=== PATIENT | male | born 1950 | race Caucasian/White ===

== ENCOUNTER → 2016-12-22 | Outpatient (CLI) | payer MEDICARE, BC ==
[2016-01-22 00:30] VITALS: BP 114/48
[~2016-12-22] MED LIST: ALBU8.5H6 INH; ATOR20TA PO; CARV3.12 PO; CLOP75TA PO; HYDR-2678 PO; HYDR-971 PO; LISI2.5T PO; LISI40TA PO; ROFL500T PO; TAMS0.4C97 PO; TIOT18CA IH
--- NOTE | 2016-12-22 10:26 | CARD ---
APPROVED REPORT EXAM: Two-dimensional and M-mode echocardiogram with Doppler and color Doppler. Other Information Quality : GoodHR: 70bpm Rhythm : NSR INDICATION Cardiac Disease: CAD CVD Aortic stenosis Surgery/Intervention CABG: RISK FACTORS Hypertension 2D DIMENSIONS RVDd2.8 (2.9-3.5cm)Left Atrium(2D)3.3 (1.6-4.0cm) IVSd0.9 (0.7-1.1cm)Aortic Root(2D)3.0 (2.0-3.7cm) LVDd4.8 (3.9-5.9cm)LVOT Diameter2.2 (1.8-2.4cm) PWd1.0 (0.7-1.1cm)LVDs3.4 (2.5-4.0cm) FS (%) 28.9 %SV59.5 ml LVEF(%)55.4 (>50%) Aortic Valve AoV Peak Yogi.183.5cm/sAoV VTI37.8cm AO Peak GR.13.5mmHgLVOT Peak Yogi.112.4cm/s AO Mean GR.7mmHgAVA (VMAX)2.30cm2 Mitral Valve MV E Rthqtnwq61.0cm/sMV E Peak Gr.4mmHg MV DECEL [id number] A Alzukupg33.3cm/s MV E Mean Gr.2mmHgE/A Ratio0.9 MV A [id number] Pulmonary Valve PV Peak Geimpiva47.2cm/s Tricuspid Valve TR P. Amyubmgx959ti/sTR Peak Gr.23mmHg Pulmonary Vein S1 Osplnrzv42.6cm/sD2 Teyjwhvy95.2cm/s PVa wacxfpvl47uymm LEFT VENTRICLE The left ventricle is normal size. There is normal left ventricular wall thickness. The left ventricu lar systolic function is normal and the ejection fraction is within normal range. The Ejection Fracti on is 50-55%. Abnormal septal wall motion is noted, moderate hypokinesis. All other left ventricular vazquez appear to contract normally. Transmitral Doppler flow pattern is Grade I-abnormal relaxation pa ttern. RIGHT VENTRICLE The right ventricle is normal size. There is normal right ventricular wall thickness. The right ventr icular systolic function is normal. ATRIA The left atrium size is normal. The right atrium size is normal. The interatrial septum is intact wit h no evidence for an atrial septal defect or patent foramen ovale as noted on 2-D or Doppler imaging. AORTIC VALVE There is a bioprosthetic aortic valve prosthesis, not well visualized. Doppler and Color Flow reveale d no significant aortic regurgitation. There is no significant aortic valvular stenosis. There is no aortic valvular vegetation. MITRAL VALVE Mitral annular calcification is mild. The mitral valve leaflets are thickened. There is no evidence o f mitral valve prolapse. There is no mitral valve stenosis. Doppler and Color Flow revealed mild mitr al regurgitation. TRICUSPID VALVE Doppler and Color Flow revealed trace tricuspid regurgitation. The pulmonary artery systolic pressure is estimated at 28 mmHg. There is no pulmonary hypertension. PULMONIC VALVE The pulmonic valve is not well visualized. Doppler and Color Flow revealed no pulmonic valvular regur gitation. There is no pulmonic valvular stenosis. GREAT VESSELS The aortic root is normal in size. The ascending aorta is normal in size. The IVC is normal in size a nd collapses >50% with inspiration. PERICARDIAL EFFUSION There is no evidence of significant pericardial effusion. Critical Notification Critical Value: No <Conclusion> The left ventricular systolic function is normal and the ejection fraction is within normal range. Th e Ejection Fraction is 50-55%. Abnormal septal wall motion is noted, moderate hypokinesis. All other left ventricular vazquez appear t o contract normally. There is a bioprosthetic aortic valve prosthesis, not well visualized.
== END | disposition home or self-care (01) ==
LOC: ECHO 07:42
PROVIDERS: ATTEND Internal Medicine Cardiovascular Disease
DX: I35.0 Nonrheumatic aortic (valve) stenosis (principal); I25.10 Atherosclerotic heart disease of native coronary artery without angina pectoris
CPT/HCPCS: 93306

== ENCOUNTER → 2017-11-29 | Outpatient (CLI) | payer MEDICARE | END | disposition home or self-care (01) | LOC: ECHO 07:44 | DX: I35.0 Nonrheumatic aortic (valve) stenosis (principal); Z95.1 Presence of aortocoronary bypass graft | CPT/HCPCS: 93306 ==

== ENCOUNTER → 2018-01-09 | Outpatient (CLI) | payer MEDICARE | END | disposition home or self-care (01) | LOC: US 16:00 | DX: I73.9 Peripheral vascular disease, unspecified (principal) | CPT/HCPCS: 93925 ==

== ENCOUNTER → 2018-06-28 | Outpatient (CLI) | payer MEDICARE ==
[2016-01-22 00:30] VITALS: BP 114/48
[~2018-06-28] MED LIST changes: +LISI-130 PO; -LISI40TA PO; -ROFL500T PO; +ROFL500T7 PO
--- NOTE | 2018-06-28 10:31 | CARD ---
MR#: [id number] Date of Study: 06/28/2018 Ordering Physician: NITA HOLLIDAY, Referring Physician: NITA HOLLIDAY, Tech: Jocelyn Langley HÉCTOR APPROVED REPORT EXAM: Two-dimensional and M-mode echocardiogram with Doppler and color Doppler. Other Information Quality : Good INDICATION Aortic Valve Disease RISK FACTORS Smoking 2D DIMENSIONS RVDd2.9 (2.9-3.5cm)Left Atrium(2D)3.5 (1.6-4.0cm) IVSd1.0 (0.7-1.1cm)Aortic Root(2D)2.8 (2.0-3.7cm) LVDd4.8 (3.9-5.9cm)LVOT Diameter2.4 (1.8-2.4cm) PWd0.9 (0.7-1.1cm)LVDs3.6 (2.5-4.0cm) FS (%) 27.0 %SV51.3 ml LVEF(%)55.0 (>50%) Aortic Valve AoV Peak Yogi.177.5cm/sAoV VTI31.8cm AO Peak GR.12.6mmHgLVOT Peak Yogi.122.6cm/s AO Mean GR.6mmHgAVA (VMAX)3.13cm2 ENMANUEL (VTI)3.10cm2 Mitral Valve MV E Fltclxdx43.0cm/sMV DECEL [id number] MV A Goconrdz70.6cm/sE/A Ratio1.2 Tricuspid Valve TR P. Btfxrbiy446lu/sRAP LVHBDORW4ikKb TR Peak Gr.47ssIqQGWY40bzEd Pulmonary Vein S1 Muescpdw29.0cm/sD2 Zycsausb28.9cm/s LEFT VENTRICLE The left ventricle is normal size. There is normal left ventricular wall thickness. Left ventricle sy stolic function is normal. The Ejection Fraction is 55%. Septal motion consistent with post operative state. The left ventricular diastolic function and filling is normal for age. RIGHT VENTRICLE The right ventricle is normal size. The right ventricular systolic function is normal. ATRIA The left atrium size is normal. The right atrium size is normal. The interatrial septum is intact wit h no evidence for an atrial septal defect or patent foramen ovale as noted on 2-D or Doppler imaging. AORTIC VALVE The aortic valve is not well visualized. Doppler and Color Flow revealed no significant aortic regurg itation. There is no significant aortic valvular stenosis. MITRAL VALVE The mitral valve is calcified but opens well. There is no evidence of mitral valve prolapse. There is no mitral valve stenosis. Doppler and Color-flow revealed trace mitral regurgitation. TRICUSPID VALVE The tricuspid valve is normal in structure and function. Doppler and Color Flow revealed trace to mil d tricuspid regurgitation. There is mild pulmonary hypertension. The PA pressure was estimated at 34 mmHg. There is no tricuspid valve stenosis. PULMONIC VALVE The pulmonic valve is not well visualized. Doppler and Color Flow revealed trace to mild pulmonic zia vular regurgitation. There is no pulmonic valvular stenosis. GREAT VESSELS The aortic root is normal in size. The ascending aorta is not well seen. The IVC is dilated and colla pses >50% with inspiration. PERICARDIAL EFFUSION There is no evidence of significant pericardial effusion. Critical Notification Critical Value: No <Conclusion> Left ventricle systolic function is normal. The Ejection Fraction is 55%. Trace mitral regurgitation. Trace to mild tricuspid regurgitation. The PA pressure was estimated at 34 mmHg. There is no evidence of significant pericardial effusion. Signed by : Girish Berry, Electronically Approved : 06/28/2018 10:30:49
== END | disposition home or self-care (01) ==
LOC: ECHO 08:42
PROVIDERS: ATTEND Internal Medicine Cardiovascular Disease
DX: I08.8 Other rheumatic multiple valve diseases (principal); I27.20 Pulmonary hypertension, unspecified; E78.5 Hyperlipidemia, unspecified; I11.0 Hypertensive heart disease with heart failure; I50.31 Acute diastolic (congestive) heart failure; E78.00 Pure hypercholesterolemia, unspecified; E87.5 Hyperkalemia; I25.10 Atherosclerotic heart disease of native coronary artery without angina pectoris; Z87.891 Personal history of nicotine dependence; Z86.718 Personal history of other venous thrombosis and embolism; Z90.49 Acquired absence of other specified parts of digestive tract; Z88.2 Allergy status to sulfonamides; Z88.5 Allergy status to narcotic agent; Z88.6 Allergy status to analgesic agent; Z88.8 Allergy status to other drugs, medicaments and biological substances
CPT/HCPCS: 93306

== ENCOUNTER → 2018-07-25 | Outpatient (CLI) | payer MEDICARE ==
[2016-01-22 00:30] VITALS: BP 114/48
--- NOTE | 2018-07-25 15:05 | KCIC ---
CT chest without contrast, low-dose lung screening protocol 07/25/2018 CLINICAL INDICATION: Tobacco use, smoking history of 50 years. COMPARISON: CT chest 07/17/2016, 01/12/2016. TECHNIQUE: Multiple CT images of the chest were obtained without contrast utilizing the low-dose CT technique. *One or more of the following individualized dose reduction techniques were utilized for this examination: 1. Automated exposure control. 2. Adjustment of the mA and/or kV according to patient size. 3. Use of iterative reconstruction technique. FINDINGS: Heart size is normal without significant pericardial effusion. Prior median sternotomy and aortic valvular repair. Three-vessel coronary artery calcifications. No axillary, mediastinal or obvious hilar lymphadenopathy. There are scattered mediastinal and bilateral hilar calcified granulomas. Moderate centrilobular and paraseptal emphysema. There is mild central peribronchial thickening. There are scattered calcified granulomas throughout both lungs. No suspicious noncalcified pulmonary nodules. There is stable minimal elevation of the left hemidiaphragm with peripheral left basilar scarring. Stable mild superior endplate L1 compression deformity. IMPRESSION: 1. No suspicious noncalcified pulmonary nodules. Lung RADS category 1. Continued low-dose CT chest follow-up in 12 months. 2. Moderate emphysema. 3. Three-vessel coronary artery calcifications. Electronically signed by: Pk Be MD (07/25/2018 3:01 PM) [id number]
== END | disposition home or self-care (01) ==
LOC: KCIC CT 10:22
PROVIDERS: ATTEND Nurse Practitioner Family
DX: Z12.2 Encounter for screening for malignant neoplasm of respiratory organs (principal); C34.92 Malignant neoplasm of unspecified part of left bronchus or lung; J43.8 Other emphysema; I25.10 Atherosclerotic heart disease of native coronary artery without angina pectoris; Z72.0 Tobacco use; L92.8 Other granulomatous disorders of the skin and subcutaneous tissue; Z87.891 Personal history of nicotine dependence
CPT/HCPCS: G0297

== ENCOUNTER → 2019-03-14 | Outpatient (CLI) | payer MEDICARE ==
[2016-01-22 00:30] VITALS: BP 114/48
[~2019-03-14] MED LIST changes: +FURO40TA4 PO; +HYDR-3164 PO; -HYDR-971 PO
--- NOTE | 2019-03-14 14:06 | KCIC ---
Examination: CT LOW DOSE LUNG SCREENING History: 25 pack-year smoking history. Comparison/Correlation: 07/25/2018 low-dose lung cancer. CT exam Findings: Axial images of chest were obtained without contrast. Sagittal and coronal reformatted images provided. Exam performed according to low-dose lung cancer screening CT protocol. Sternal wires are present. Prosthetic aortic valve is present. There is no pleural or pericardial effusion. No enlarged thoracic lymph nodes. Calcified subcarinal lymph nodes are present. Tracheobronchial tree is unremarkable. Diffuse centrilobular emphysema lung gomez noted. No pulmonary nodule or mass lesion. Calcific granuloma involves the right lung base. Partially visualized upper abdomen is unremarkable. L1 vertebral body compression deformity is unchanged. Impression: Lungs rads category 1-negative. No suspicious pulmonary nodule. Consider continued annual screening evaluation. Diffuse centrilobular emphysema. PQRS Compliance Statement: One or more of the following individualized dose reduction techniques were utilized for this examination: 1. Automated exposure control 2. Adjustment of the mA and/or kV according to patient size 3. Use of iterative reconstruction technique Electronically signed by: Usman Banks MD (03/14/2019 2:03 PM) [id number]
== END | disposition home or self-care (01) ==
LOC: KCIC CT 08:03
PROVIDERS: ATTEND Internal Medicine Pulmonary Disease
DX: Z12.2 Encounter for screening for malignant neoplasm of respiratory organs (principal); J43.2 Centrilobular emphysema; J84.10 Pulmonary fibrosis, unspecified; I89.8 Other specified noninfective disorders of lymphatic vessels and lymph nodes; F17.210 Nicotine dependence, cigarettes, uncomplicated; Z95.2 Presence of prosthetic heart valve
CPT/HCPCS: G0297

== ENCOUNTER 2019-03-27 12:36 | Inpatient (IN) | payer MEDICARE ==
[~2019-03-27] VITALS: Ht 188 cm; Wt 77.1 kg
[2019-03-27] MEDS: ALBUTEROL SULFATE 2.5 MG/3 ML NEBU. NEB SCH ×2 (04:00)
[~2019-03-27 12:36] MED LIST changes: -FURO40TA4 PO
[2019-03-27 14:01] LABS: BASO # 0.1 x10^3/uL (0.0-0.2); BASO % 1 % (0-3); EOS % 1 % (0-3); HEMATOCRIT 45.8 % (39.0-53.0); HEMOGLOBIN 15.3 g/dL (13.0-17.5); LYMPH # 1.6 x10^3/uL (1.0-4.8); LYMPH % 24 % (24-48); MEAN CORPUSCULAR HEMOGLOBIN 31 pg (25-35); MEAN CORPUSCULAR HGB CONC 34 g/dL (31-37); MEAN CORPUSCULAR VOLUME 93 fL (79-100); MONO # 0.4 x10^3/uL (0.0-1.1); MONO % 6 % (0-9); NEUT # 4.7 x10^3uL (1.8-7.7); NEUT % 69 % (31-73); PLATELET COUNT 215 x10^3/uL (140-400); RED BLOOD COUNT 4.93 x10^6/uL (4.30-5.70); RED CELL DISTRIBUTION WIDTH 13.4 % (11.5-14.5); WHITE BLOOD COUNT 6.8 x10^3/uL (4.0-11.0)
[2019-03-27 14:11] LABS: CALCIUM 9.3 mg/dL (8.5-10.1); CREATININE 1.2 mg/dL (0.7-1.3); GFR 60.4; POTASSIUM 3.9 mmol/L (3.5-5.1); PROTHROMBIN TIME PATIENT 13.8 SEC (11.7-14.0)
[2019-03-27 14:16] LABS: ALBUMIN 3.9 g/dL (3.4-5.0); TOTAL BILIRUBIN 0.6 mg/dL (0.2-1.0)
--- NOTE | 2019-03-27 14:27 | PDOC1 ---
History and Physical Date of Admission Date of Admission DATE: 03/27/19 TIME: 14:23 Identification/Chief Complaint Chief Complaint claudication Source Source: Caregiver, Chart review, Patient History of Present Illness History of Present Illness 78-year-old white male, bad vasculopath, distant CABG and very heavy smoker down to half a pack a day from previous 2-3 packs a day, known to our vascular surgery service for numerous revascularization of bilateral legs. Sent in by PCP office Dr. Bianchi because of claudication and decreased pulses. Seen at ER with the , agreeable to be admitted. AMADA and arterial Dopplers are being done at bedside. He does have claudication some numbness otherwise denies any chest pain diaphoresis presyncopal symptoms or anything else. He takes Plavix and aspirin and claims compliance Past Medical History Cardiovascular: CAD, HTN, Other Pulmonary: COPD CENTRAL NERVOUS SYSTEM: Other GI: Peptic Ulcer disease Heme/Onc: Other Hepatobiliary: No pertinent hx Psych: No pertinent hx Musculoskeletal: Osteoarthritis, Other Infectious disease: No pertinent hx Renal/: Benign prostatic enlarg. Endocrine: No pertinent hx Past Surgical History Past Surgical History: Appendectomy, Other (numerous revasc proc leg bilateral) Family History Family History: No Significant, Hypertension Social History Smoke: <1 pack per day ALCOHOL: occassional Drugs: None Current Medications Current Medications Current Medications Albuterol Sulfate (Ventolin Hfa) 2 puff Q4HRS INH ; Start 03/27/19 at 16:00; Status UNV Atorvastatin Calcium (Lipitor) 20 mg DAILY PO ; Start 03/28/19 at 09:00; Status UNV Carvedilol (Coreg) 3.125 mg BID PO ; Start 03/27/19 at 21:00; Status UNV Clopidogrel Bisulfate (Plavix) 75 mg DAILY PO ; Start 03/28/19 at 09:00; Status UNV Acetaminophen/ Hydrocodone Bitart (Lortab 5/325) 2 tab PRN Q6HRS PRN PO PAIN; Start 03/27/19 at 14:30; Status UNV Acetaminophen/ Hydrocodone Bitart (Lortab 5/325) 1 tab QID PRN PO pain; Start 03/27/19 at 14:30; Status UNV Tamsulosin HCl (Flomax) 0.4 mg DAILY PO ; Start 03/28/19 at 09:00; Status UNV Non-Formulary Medication (Roflumilast (Daliresp)) 1 tab DAILY PO ; Start 03/28/19 at 09:00; Status UNV Non-Formulary Medication (Tiotropium Bangs (Spiriva)) 2 inh DAILY IH ; Start 03/28/19 at 09:00; Status UNV Active Scripts Active Coreg (Carvedilol) 3.125 Mg Tablet 1 Tab PO BID Lipitor (Atorvastatin Calcium) 20 Mg Tablet 1 Tab PO DAILY [place] 5-325 Tablet (Acetaminophen/Hydrocodone Bitart) 1 Each Tablet 1-2 Tab PO Q4-6HRS 14 Days Reported Lortab 5-325 mg Tablet (Hydrocodone/Acetaminophen) 1 Each Tablet 2 Tab PO PRN Q6HRS PRN Flomax (Tamsulosin Hcl) 0.4 Mg Cap.er.24h 0.4 Mg PO DAILY Albuterol Sulfate Hfa Inhaler (Albuterol Sulfate) 8.5 Gm Hfa.aer.ad 2 Puff INH Q4HRS Clopidogrel (Clopidogrel Bisulfate) 75 Mg Tablet 1 Tab PO DAILY Daliresp (Roflumilast) 500 Mcg Tablet 1 Tab PO DAILY Spiriva (Tiotropium Bangs) 18 Mcg Cap.w.dev 2 Inh IH DAILY Allergies Allergies: Coded Allergies: Sulfa (Sulfonamide Antibiotics) (Verified Adverse Reaction, Intermediate, HALLUCINATIONS, 01/13/16) had horrible hallucinations and was in the hospital for 1 week bupropion (Verified Adverse Reaction, Intermediate, HALLUCINATIONS, 01/13/16) morphine (Verified Adverse Reaction, Intermediate, HALLUCINATIONS, 01/13/16) if taking for more than 24hrs starts hallucinating, paranoid varenicline (Verified Adverse Reaction, Intermediate, HALLUCINATIONS, 01/13/16) took an old drug that is in the same class called Ziban (?sp) and had terrible hallucinations and states he was crazy for a week and off work for another 3 weeks after out of the hospital ROS Review of System As per history of present illness, the rest of ROS 14 point negative Physical Exam General: Alert, Oriented X3, Cooperative, No acute distress HEENT: Atraumatic, PERRLA, EOMI Lungs: Clear to auscultation, Normal air movement Heart: S1S2, RRR, no thrills, no rubs, no gallops, no murmurs Cardiovascular: S1, S2 Abdomen: Normal bowel sounds, Soft, No tenderness, No hepatosplenomegaly, No masses Male Genitals Exam: normal genitalia, normal prostate Rectal Exam: not examined PELVIC: Nml ext genitalia Extremities: No clubbing, No cyanosis, No edema, No tenderness/swelling, Other (decreased pulses dorsalis pedis left greater than right) Neuro: Normal gait, Normal speech, Strength at 5/5 X4 ext, Normal tone, Sensation intact, Cranial nerves 3-12 NL, Reflexes 2+ Psych/Mental Status: Mental status NL, Mood NL Vitals Vitals Vital Signs Date Time Temp Pulse Resp B/P (MAP) Pulse Ox O2 Delivery O2 Flow Rate FiO2 03/27/19 13:13 97.7 56 24 150/67 (94) 97 Room Air 97.7 Labs Labs Laboratory Tests Test 03/27/19 13:50 White Blood Count 6.8 x10^3/uL (4.0-11.0) Red Blood Count 4.93 x10^6/uL (4.30-5.70) Hemoglobin 15.3 g/dL (13.0-17.5) Hematocrit 45.8 % (39.0-53.0) Mean Corpuscular Volume 93 fL (79-100) Mean Corpuscular Hemoglobin 31 pg (25-35) Mean Corpuscular Hemoglobin Concent 34 g/dL (31-37) Red Cell Distribution Width 13.4 % (11.5-14.5) Platelet Count 215 x10^3/uL (140-400) Neutrophils (%) (Auto) 69 % (31-73) Lymphocytes (%) (Auto) 24 % (24-48) Monocytes (%) (Auto) 6 % (0-9) Eosinophils (%) (Auto) 1 % (0-3) Basophils (%) (Auto) 1 % (0-3) Neutrophils # (Auto) 4.7 x10^3uL (1.8-7.7) Lymphocytes # (Auto) 1.6 x10^3/uL (1.0-4.8) Monocytes # (Auto) 0.4 x10^3/uL (0.0-1.1) Eosinophils # (Auto) 0.0 x10^3/uL (0.0-0.7) Basophils # (Auto) 0.1 x10^3/uL (0.0-0.2) Prothrombin Time 13.8 SEC (11.7-14.0) Prothromb Time International Ratio 1.1 (0.8-1.1) Activated Partial Thromboplast Time 30 SEC (24-38) Sodium Level 143 mmol/L (136-145) Potassium Level 3.9 mmol/L (3.5-5.1) Chloride Level 102 mmol/L (98-107) Carbon Dioxide Level 31 mmol/L (21-32) Anion Gap 10 (6-14) Blood Urea Nitrogen 15 mg/dL (8-26) Creatinine 1.2 mg/dL (0.7-1.3) Estimated GFR (Cockcroft-Gault) 60.4 BUN/Creatinine Ratio 13 (6-20) Glucose Level 98 mg/dL (70-99) Calcium Level 9.3 mg/dL (8.5-10.1) Total Bilirubin 0.6 mg/dL (0.2-1.0) Aspartate Amino Transf (AST/SGOT) 14 U/L (15-37) Alanine Aminotransferase (ALT/SGPT) 15 U/L (16-63) Alkaline Phosphatase 122 U/L (46-116) Total Protein 8.0 g/dL (6.4-8.2) Albumin 3.9 g/dL (3.4-5.0) Albumin/Globulin Ratio 1.0 (1.0-1.7) Laboratory Tests Test 03/27/19 13:50 White Blood Count 6.8 x10^3/uL (4.0-11.0) Red Blood Count 4.93 x10^6/uL (4.30-5.70) Hemoglobin 15.3 g/dL (13.0-17.5) Hematocrit 45.8 % (39.0-53.0) Mean Corpuscular Volume 93 fL (79-100) Mean Corpuscular Hemoglobin 31 pg (25-35) Mean Corpuscular Hemoglobin Concent 34 g/dL (31-37) Red Cell Distribution Width 13.4 % (11.5-14.5) Platelet Count 215 x10^3/uL (140-400) Neutrophils (%) (Auto) 69 % (31-73) Lymphocytes (%) (Auto) 24 % (24-48) Monocytes (%) (Auto) 6 % (0-9) Eosinophils (%) (Auto) 1 % (0-3) Basophils (%) (Auto) 1 % (0-3) Neutrophils # (Auto) 4.7 x10^3uL (1.8-7.7) Lymphocytes # (Auto) 1.6 x10^3/uL (1.0-4.8) Monocytes # (Auto) 0.4 x10^3/uL (0.0-1.1) Eosinophils # (Auto) 0.0 x10^3/uL (0.0-0.7) Basophils # (Auto) 0.1 x10^3/uL (0.0-0.2) Prothrombin Time 13.8 SEC (11.7-14.0) Prothromb Time International Ratio 1.1 (0.8-1.1) Activated Partial Thromboplast Time 30 SEC (24-38) Sodium Level 143 mmol/L (136-145) Potassium Level 3.9 mmol/L (3.5-5.1) Chloride Level 102 mmol/L (98-107) Carbon Dioxide Level 31 mmol/L (21-32) Anion Gap 10 (6-14) Blood Urea Nitrogen 15 mg/dL (8-26) Creatinine 1.2 mg/dL (0.7-1.3) Estimated GFR (Cockcroft-Gault) 60.4 BUN/Creatinine Ratio 13 (6-20) Glucose Level 98 mg/dL (70-99) Calcium Level 9.3 mg/dL (8.5-10.1) Total Bilirubin 0.6 mg/dL (0.2-1.0) Aspartate Amino Transf (AST/SGOT) 14 U/L (15-37) Alanine Aminotransferase (ALT/SGPT) 15 U/L (16-63) Alkaline Phosphatase 122 U/L (46-116) Total Protein 8.0 g/dL (6.4-8.2) Albumin 3.9 g/dL (3.4-5.0) Albumin/Globulin Ratio 1.0 (1.0-1.7) VTE Prophylaxis Ordered VTE Prophylaxis Devices: Yes VTE Pharmacological Prophylaxi: Yes Assessment/Plan Assessment/Plan PAD, bilateral, numerous revascularization, bilateral legs-last one 10 years ago Heavy smoker Claudication History CAD with 1 stent Hx fem fem and fem-pop NO DM PLAN: admit 2 midnights, AMADA, arterial Dopplers, consult vascular surgery Cardiac diet until vascular surgery sees PT OT resume Plavix, aspirin and other meds Full code Nicotine patch and gum when necessary Smoking cessation emphasized by me at ER level Discussed with patient and , seen at ER LORNE ARANGO MD March 27, 2019 14:27
[2019-03-27] MEDS ORDERED: ACETAMINOPHEN/CODEINE 300/30MG TABLET. PO PRN (14:30)
[2019-03-27] MEDS ORDERED: diphenhydrAMINE HCL 25 MG CAPSULE PO PRN (14:30)
[2019-03-27] MEDS ORDERED: fentaNYL PF VIAL 100 MCG/2 ML VIAL IV PRN (14:30)
[2019-03-27] MEDS ORDERED: NICOTINE POLACRILEX 2MG GUM PACKAGE of 12. BC PRN (14:30)
[2019-03-27] MEDS ORDERED: ONDANSETRON PF 4 MG/2 ML VIAL. IV PRN (14:30)
[2019-03-27] MEDS ORDERED: ACETAMINOPHEN 500 MG TABLET PO PRN (14:30)
[2019-03-27] MEDS ORDERED: HYDROcodone/APAP 5/325MG 1 TAB TABLET PO PRN ×2 (14:30)
[2019-03-27] MEDS ORDERED: NICOTINE 21MG PATCH. TD PRN (14:30)
--- NOTE | 2019-03-27 14:37 | RAD ---
LEFT LEG VENOUS DOPPLER STUDY: Clinical indications: Left leg swelling and pain. Findings: Duplex sonography (including angel scale evaluation and color flow and waveform spectral analysis) of the proximal aspect of the greater saphenous vein and the proximal aspect of the profunda femoral vein and the entire length of the common femoral and superficial femoral and popliteal veins and the tibioperoneal trunk and the proximal aspect of the posterior tibial and peroneal veins of the left leg was performed. Normal compressibility, augmentation of color Doppler flow after calf compression, and respiratory variation of Doppler flow is seen. Thus, there are no sonographic findings of deep venous thrombosis within these veins. Impression: There are no sonographic findings of deep venous thrombosis within the veins discussed above of the left lower extremity. Electronically signed by: Galen Wells MD (03/27/2019 2:35 PM) [id number]
--- NOTE | 2019-03-27 15:44 | EKG ---
[facility] [address] [place] [address] Test Date: 2019-03-27 Test Time: 12:47:23 Pat Name: CRICKET PATTERSON Department: Room: Gender: M Back Maker: : [id number] Requested By: ERICA NORTON Order Number: [id number] Reading MD: Measurements Intervals [place] Rate: 53 P: 64 AR: 176 QRS: 81 QRSD: 92 T: 70 QT: 418 QTc: 394 Interpretive Statements SINUS RHYTHM S1,S2,S3 PATTERN QRS(T) CONTOUR ABNORMALITY CANNOT RULE OUT ANTEROSEPTAL MYOCARDIAL DAMAGE BORDERLINE ECG No previous ECG available for comparison
--- NOTE | 2019-03-27 15:46 | PHYS DOC ---
Past Medical History Past Medical History: CAD, COPD, High Cholesterol, Hypertension, Other Additional Past Medical Histor: arterial sclerosis, NSTEMI Past Surgical History: Appendectomy, Other Additional Past Surgical Histo: multiple bilat leg, fem pop, Anerysm reduction Alcohol Use: None Drug Use: None Adult General Chief Complaint Chief Complaint: LOWER EXT PAIN HPI HPI 68-year-old male presents to ER via POV for complaints of 5 day history of left leg pain. Patient's primary care physician's office called the ER to notify us of patient being sent to the ER for evaluation per request from his vascular surgeon. Patient has history of left lower extremity pseudoaneurysm repair a few years ago. Pt also has history of PAD/PVD. Patient denies any recent injury or falls. Patient denies swelling or skin discoloration and left lower extremity. Patient is a daily smoker. Patient denies any recent travel. Patient is on daily Plavix and aspirin for prior ME, stent placement, valve replacement, and CABG 2 vessel. Review of Systems Review of Systems Constitutional: Denies fever or chills [] Eyes: Denies change in visual acuity, redness, or eye pain [] HENT: Denies nasal congestion or sore throat [] Respiratory: Denies cough or shortness of breath [] Cardiovascular: Denies CP/palpitations GI: Denies abdominal pain, nausea, vomiting, bloody stools or diarrhea [] : Denies dysuria or hematuria [] Musculoskeletal: Reports lt leg pain Integument: Denies rash, swelling or skin lesions [] Neurologic: Denies headache, focal weakness or sensory changes [] Endocrine: Denies polyuria or polydipsia [] All other systems were reviewed and found to be within normal limits, except as documented in this note. Current Medications Current Medications Current Medications Medications (Trade) Dose Ordered Sig/Kacie Start Time Stop Time Status Last Admin Dose Admin Acetaminophen (Tylenol) 500 mg PRN Q6HRS PRN 03/27/19 14:30 03/28/19 21:30 DC Acetaminophen/ Codeine Phosphate (Tylenol #3) 1 tab PRN Q6HRS PRN 03/27/19 14:30 03/28/19 21:30 DC Acetaminophen/ Hydrocodone Bitart (Lortab 5/325) 1 tab PRN Q6HRS PRN 03/27/19 14:30 03/28/19 21:30 DC Albuterol Sulfate (Ventolin Neb Soln) 2.5 mg Q4HRS@0000,0400 03/27/19 00:00 03/28/19 21:30 DC Diphenhydramine HCl (Benadryl) 25 mg PRN QHS PRN 03/27/19 14:30 03/28/19 21:30 DC Fentanyl Citrate (Fentanyl 2ml Vial) 50 mcg PRN Q2HR PRN 03/27/19 14:30 03/28/19 21:30 DC Nicotine (Nicoderm Cq 21mg) 1 patch PRN DAILY PRN 03/27/19 14:30 03/28/19 21:30 DC Nicotine Polacrilex (Nicorette Gum) 1 each PRN Q1HR PRN 03/27/19 14:30 03/28/19 21:30 DC Ondansetron HCl (Zofran) 4 mg PRN Q6HRS PRN 03/27/19 14:30 03/28/19 21:30 DC Allergies Allergies Allergies Coded Allergies Type Severity Reaction Last Updated Verified Sulfa (Sulfonamide Antibiotics) Adverse Reaction Intermediate HALLUCINATIONS 01/13/16 Yes bupropion Adverse Reaction Intermediate HALLUCINATIONS 01/13/16 Yes morphine Adverse Reaction Intermediate HALLUCINATIONS 01/13/16 Yes varenicline Adverse Reaction Intermediate HALLUCINATIONS 01/13/16 Yes Physical Exam Physical Exam Constitutional: Well developed, well nourished, no acute distress, non-toxic appearance. [] HENT: Normocephalic, atraumatic, oropharynx moist, no oral exudates, nose normal. [] Eyes: Pupils equal, conjunctiva normal, no discharge. [] Neck: Normal range of motion, no tenderness, supple, no stridor. [] Cardiovascular: Heart rate regular rhythm, no murmur [] Lungs & Thorax: Bilateral breath sounds clear to auscultation- resp. equal/nonlabored Abdomen: Bowel sounds normal, soft, no tenderness, no masses, no pulsatile masses. [] Skin: Warm, dry, no erythema, no rash. [] Back: No tenderness, no CVA tenderness. [] Extremities: No tenderness on palp, no cyanosis, no clubbing, ROM intact, no edema. [] Lt lower extremity bedside Doppler able to auscultate posterior tibial. Unable to auscultate dorsalis pedis. Femoral pulse 1+ weak lt side. Pulses 2+ rt femoral/dorsalis pedis/posterior tibial Neurologic: Alert and oriented X 3, normal motor function, normal sensory function, no focal deficits noted. [] Psychologic: Affect normal, judgement normal, mood normal. [] Current Patient Data Vital Signs Vital Signs Date Time Temp Pulse Resp B/P (MAP) Pulse Ox O2 Delivery O2 Flow Rate FiO2 03/27/19 14:51 56 127/62 (83) 95 Nasal Cannula 2.0 03/27/19 13:13 97.7 24 97.7 Lab Values Laboratory Tests Test 03/27/19 13:50 White Blood Count 6.8 x10^3/uL (4.0-11.0) Red Blood Count 4.93 x10^6/uL (4.30-5.70) Hemoglobin 15.3 g/dL (13.0-17.5) Hematocrit 45.8 % (39.0-53.0) Mean Corpuscular Volume 93 fL (79-100) Mean Corpuscular Hemoglobin 31 pg (25-35) Mean Corpuscular Hemoglobin Concent 34 g/dL (31-37) Red Cell Distribution Width 13.4 % (11.5-14.5) Platelet Count 215 x10^3/uL (140-400) Neutrophils (%) (Auto) 69 % (31-73) Lymphocytes (%) (Auto) 24 % (24-48) Monocytes (%) (Auto) 6 % (0-9) Eosinophils (%) (Auto) 1 % (0-3) Basophils (%) (Auto) 1 % (0-3) Neutrophils # (Auto) 4.7 x10^3uL (1.8-7.7) Lymphocytes # (Auto) 1.6 x10^3/uL (1.0-4.8) Monocytes # (Auto) 0.4 x10^3/uL (0.0-1.1) Eosinophils # (Auto) 0.0 x10^3/uL (0.0-0.7) Basophils # (Auto) 0.1 x10^3/uL (0.0-0.2) Prothrombin Time 13.8 SEC (11.7-14.0) Prothrombin Time INR 1.1 (0.8-1.1) PTT 30 SEC (24-38) Sodium Level 143 mmol/L (136-145) Potassium Level 3.9 mmol/L (3.5-5.1) Chloride Level 102 mmol/L (98-107) Carbon Dioxide Level 31 mmol/L (21-32) Anion Gap 10 (6-14) Blood Urea Nitrogen 15 mg/dL (8-26) Creatinine 1.2 mg/dL (0.7-1.3) Estimated GFR (Cockcroft-Gault) 60.4 BUN/Creatinine Ratio 13 (6-20) Glucose Level 98 mg/dL (70-99) Calcium Level 9.3 mg/dL (8.5-10.1) Total Bilirubin 0.6 mg/dL (0.2-1.0) Aspartate Amino Transferase (AST) 14 U/L (15-37) L Alanine Aminotransferase (ALT) 15 U/L (16-63) L Alkaline Phosphatase 122 U/L (46-116) H Total Protein 8.0 g/dL (6.4-8.2) Albumin 3.9 g/dL (3.4-5.0) Albumin/Globulin Ratio 1.0 (1.0-1.7) Laboratory Tests 03/27/19 13:50 Laboratory Tests 03/27/19 13:50 EKG EKG EKG obtained 03/27/19 at [address] Morrison Sinus bradycardia Rate 53 Radiology/Procedures Radiology/Procedures PROCEDURE: VENOUS LOWER EXTREMITY LEFT LEFT LEG VENOUS DOPPLER STUDY: Clinical indications: Left leg swelling and pain. Findings: Duplex sonography (including angel scale evaluation and color flow and waveform spectral analysis) of the proximal aspect of the greater saphenous vein and the proximal aspect of the profunda femoral vein and the entire length of the common femoral and superficial femoral and popliteal veins and the tibioperoneal trunk and the proximal aspect of the posterior tibial and peroneal veins of the left leg was performed. Normal compressibility, augmentation of color Doppler flow after calf compression, and respiratory variation of Doppler flow is seen. Thus, there are no sonographic findings of deep venous thrombosis within these veins. Impression: There are no sonographic findings of deep venous thrombosis within the veins discussed above of the left lower extremity. Electronically signed by: Richard Wells MD (03/27/2019 2:35 PM) [place] [id number] DICTATED and SIGNED BY: RICHARD WELLS MD DATE: 03/27/19 143 PROCEDURE: ARTERIAL STUDY LOWER EXT LEFT ANKLE BRACHIAL INDEX Indication: Left leg pain. History of pseudoaneurysm repair. Comparison: None. Procedure: Arterial pressures are measured in the arms and ankles. Findings: . Right ankle: 128 mm Hg. Right arm: 121 mm Hg. Left ankle: 137 mm Hg. Left arm: Not measured due to IV placement. Right leg AMADA: 1.1. Left leg AMADA: 1.2. AMADA interpretation: 0.96 and above Generally normal 0.81-0.95 Mild disease 0.51-0.80 Moderate disease 0.31-0.50 Moderate to severe disease 0.3 or below Severe disease IMPRESSION: Normal ABIs. End of impression: LOWER EXTREMITY DUPLEX ARTERY ULTRASOUND Indication: Left leg pain. History of pseudoaneurysm repair. Comparison: None. Procedure: Real-time grayscale, color flow Doppler, and Doppler spectral waveform analysis of the arterial system of the lower extremity is performed. Findings: Left common femoral artery waveform is monophasic, there is elevated peak systolic velocity 212 cm/s. There is monophasic waveform in the profunda artery. The [place] superficial femoral artery is occluded. There is a femoral popliteal bypass graft that is patent, calcified plaque is noted in the lumen. There are biphasic waveforms in the bypass without elevated peak systolic velocities. The popliteal artery, posterior tibial artery, and peroneal artery waveforms are biphasic. The anterior tibial artery waveform is monophasic. The dorsalis pedis artery is not identified and may be occluded or small caliber. IMPRESSION: 1. Left common femoral artery waveform is monophasic suggesting there is more proximal flow-limiting stenosis. 2. [place] SFA is occluded. There is a patent femoral-popliteal bypass. 3. Dorsalis pedis artery is not identified and may be occluded or small caliber. 4. Monophasic waveform in the anterior tibial artery suggests flow-limiting stenosis near its origin. Electronically signed by: Casper Franklin MD (03/27/2019 2:40 PM) [id number] DICTATED and SIGNED BY: CASPER FRANKLIN MD DATE: 03/27/19 1445 Course & Med Decision Making Course & Med Decision Making Pertinent Labs and Imaging studies reviewed. (See chart for details) 1406: Dr. Bradford, hospitalist was in ER and so discussed pt's case and admit plan. US results pending. Pt will be admitted to hospitalist services with consult for vascular surgery. 1456: Spoke with Dr. Garcia, [facility] and discussed pt's case and US results. No DVT on US report. "[place] SFA is occluded. There is a patent femoral-popliteal bypass" and "Dorsalis pedis artery is not identified and may be occluded or small caliber" also reported. Discussed test results with patient and his . Discussed admission plan. Patient has had no change in condition lt LE since initial exam. Patient was off ered pain medication and he reported pain to be tolerable. [facility] and care. Dragon Disclaimer Dragon Disclaimer This electronic medical record was generated, in whole or in part, using a voice recognition dictation system. Departure Departure Impression: Primary Impression: Left leg pain Disposition: ADMITTED INPATIENT Admitting Physician: Rossy Bradford Condition: STABLE Referrals: JOSIAS ST MD (PCP) ERICA NORTON ORE SMELTER March 27, 2019 15:46
[2019-03-27] MEDS: IPRATRPIUM/ALBUTEROL 0.5/2.5MG 3 ML NEBU. NEB SCH ×2 (16:00→19:36)
[2019-03-27 16:45] VITALS: BP 124/63
[2019-03-27] MEDS: CARVEDILOL 3.125 MG TABLET. PO SCH (18:30)
[2019-03-27] MEDS ORDERED: FURO40TA4 PO (18:34)
[2019-03-27 19:45] VITALS: BP 112/59
[2019-03-27] MEDS ORDERED: ATORVASTATIN CALCIUM 20 MG TABLET PO SCH (21:00)
--- NOTE | 2019-03-27 21:56 | PDOC ---
Provider Note Provider Note Vascular consult dictated Imp: 1. left buttock and hip claudication. Exam and ultrasound findings suggest inflow problem, ? left iliac stenosis 2. status post left fem-pop bypass. Patent with palpable graft and PT pulses 3. ASHD 4. tobaccoism 5. dyslipidemia Rec: CTA of the abdomen and pelvis with runoff. tobaccos cessation counseling KRISTA TEE II, MD March 27, 2019 21:56
[2019-03-27 23:51] VITALS: BP 104/55
[2019-03-28 03:54] VITALS: BP 106/56
[2019-03-28] MEDS: ALBUTEROL SULFATE 2.5 MG/3 ML NEBU. NEB SCH ×2 (04:00)
[2019-03-28 07:00] VITALS: BP 104/51
[2019-03-28] MEDS ORDERED: IOHEXOL 350 MG/ML 100 ML VIAL. IV ONE (07:15)
[2019-03-28] MEDS ORDERED: CONTRAST GIVEN. MC PRN (07:30)
[2019-03-28] MEDS: CARVEDILOL 3.125 MG TABLET. PO SCH (08:00)
[2019-03-28] MEDS: IPRATRPIUM/ALBUTEROL 0.5/2.5MG 3 ML NEBU. NEB SCH ×4 (08:18→20:00)
[2019-03-28] MEDS ORDERED: CLOPIDOGREL BISULFATE 75 MG TABLET PO SCH (09:00)
[2019-03-28] MEDS ORDERED: ROFLUMILAST 500 MCG TABLET. PO SCH (09:00)
[2019-03-28] MEDS ORDERED: NON FORMULARY ITEM (Tiotropium Bromide (Spiriva) 2 INH) IH SCH (09:00)
[2019-03-28] MEDS ORDERED: TAMSULOSIN 0.4 MG CAP.ER.24H. PO SCH (09:00)
--- NOTE | 2019-03-28 10:09 | RAD ---
CT angiography abdomen and pelvis with lower extremity runoff with contrast PQRS statement: CT scans at this facility use dose reduction including either automated exposure control, iterative reconstructions, and /or weight based radiation dosing via mA and kV modification when appropriate to reduce radiation dose to as low as reasonably achievable. HISTORY: Left leg claudication. Left iliac artery stenosis. TECHNIQUE: Helical CT imaging of the abdomen, pelvis and legs with 3-D MIP and volume reconstructions of the arteries characterize vascular anatomy and pathology with 90 mL Omnipaque 350 intravenous contrast. Abdomen findings: Calcified plaque without significant stenosis of the celiac artery, superior mesenteric artery. There may be a moderate to high-grade ostial stenosis of the inferior mesenteric artery but remains patent distally. Plaque of the left renal artery with mild stenosis less than 50 percent at its origin. Right renal artery calcified plaque of its proximal 2 cm segment with moderate stenosis of 50 percent. Abdominal aorta extensive partially calcified plaque without tibia stenosis. No dissection. 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 2 cm left renal cyst density 7 units. Liver, gallbladder, pancreas, right kidney, adrenals, spleen unremarkable. No bowel obstruction or inflammation. Sigmoid diverticulosis. At the right abdomen there is a 4 cm air and fluid-filled diverticulum with layering calculi which appears to arise from the small bowel without inflammation. Mild chronic anterior wedge L1 lumbar compression fracture. Mild mesenteric panniculitis. Lung bases unremarkable. Pelvis findings: The left common iliac artery occludes 2 cm distal from the aortic bifurcation and remains occluded through the external iliac artery. Left internal iliac artery extensive plaqu[place] which is proximally occluded, distally reconstitutes via collaterals. Right common iliac artery plaquing with mild stenotic disease less than 50 percent. Right internal iliac artery extensive [place] with high-grade stenotic disease greater than 70 percent. Right external iliac artery calcified plaque with moderate stenotic disease of up to 50 percent at some locations. There is a femoral to femoral arterial bypass graft is patent. Along the inferior aspect of the right femoral graft anastomosis there is a 1 cm oblong outpouching which may be a small aneurysm. Pelvic organs unremarkable. Left leg: Patent femoral to popliteal artery bypass graft with mild calcification surrounding the graft without stenosis or occlusion or thrombosis. The common femoral artery is patent as well as the profunda femoral artery, the [place] superficial femoral artery is occluded. Popliteal artery pla[place]ing with moderate stenotic disease of up to 50 percent distally leading up to its bifurcation. Intertibial artery occluded from the upper calf to the foot. Peroneal artery patent to the ankle. Posterior tibial artery patent to the foot. Right leg: Common femoral artery as well as the profunda femoral artery are patent. Femoral popliteal artery bypass graft is patent without stenosis, occlusion or thrombosis. [place] superficial femoral artery is occluded. Popliteal artery plaquing, distally at the upper calf prior to its bifurcation there is a high-grade stenosis of 70 percent or greater. [place] antra tibial artery occludes at the mid calf. [place] peroneal artery remains patent and ankle. Posterior tibial artery stenotic disease remains patent in the foot. IMPRESSION: 1. 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 There is reconstitution of the left common femoral artery via a patent femoral to femoral arterial bypass graft. 2. Patent bilateral femoral to popliteal artery bypass grafts bypassing chronically occluded [place] superficial femoral arteries. 3. 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 4. Left distal popliteal artery moderate stenotic disease. Right distal popliteal artery high-grade stenotic disease. 5. Bilateral below the knee small vessel disease as described above. 6. Moderate stenotic disease right external iliac artery of up to 50 percent. 7. 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 Electronically signed by: Sandro Pollard MD (03/28/2019 10:06 AM) [id number]
--- NOTE | 2019-03-28 10:28 | PDOC ---
PROGRESS NOTES Chief Complaint Chief Complaint PAD, bilateral, numerous revascularization, bilateral legs-last one 10 years ago Heavy smoker Claudication History CAD with 1 stent Hx fem fem and fem-pop NO DM History of Present Illness History of Present Illness AMADA: IMPRESSION: 1. Left common femoral artery waveform is monophasic suggesting there is more proximal flow-limiting stenosis. 2. [place] SFA is occluded. There is a patent femoral-popliteal bypass. 3. Dorsalis pedis artery is not identified and may be occluded or small caliber. 4. Monophasic waveform in the anterior tibial artery suggests flow-limiting stenosis near its origin. Asleep, no complaints Run off already done: 1. 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 There is reconstitution of the left common femoral artery via a patent femoral to femoral arterial bypass graft. 2. Patent bilateral femoral to popliteal artery bypass grafts bypassing chronically occluded [place] superficial femoral arteries. 3. 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 4. Left distal popliteal artery moderate stenotic disease. Right distal popliteal artery high-grade stenotic disease. 5. Bilateral below the knee small vessel disease as described above. 6. Moderate stenotic disease right external iliac artery of up to 50 percent. 7. 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 PLAN: Has been nothing by mouth Follow-up vascular surgery recs I have reconciled home meds Main complaint is claudication and occasional numbness of legs Vitals Vitals Vital Signs Date Time Temp Pulse Resp B/P (MAP) Pulse Ox O2 Delivery O2 Flow Rate FiO2 03/28/19 08:20 95 Room Air 03/28/19 08:00 2.0 03/28/19 07:00 98.1 66 18 104/51 (68) 98.1 Physical Exam General: Alert, Oriented X3, Cooperative, No acute distress Lungs: Clear, Other Abdomen: Normal bowel sounds, Soft, No tenderness, No hepatosplenomegaly, No masses Extremities: No clubbing, No cyanosis, No edema, No tenderness/swelling, Other (decreased pulses dorsalis pedis left greater than right) Labs LABS Laboratory Tests Test 03/27/19 13:50 White Blood Count 6.8 x10^3/uL (4.0-11.0) Red Blood Count 4.93 x10^6/uL (4.30-5.70) Hemoglobin 15.3 g/dL (13.0-17.5) Hematocrit 45.8 % (39.0-53.0) Mean Corpuscular Volume 93 fL (79-100) Mean Corpuscular Hemoglobin 31 pg (25-35) Mean Corpuscular Hemoglobin Concent 34 g/dL (31-37) Red Cell Distribution Width 13.4 % (11.5-14.5) Platelet Count 215 x10^3/uL (140-400) Neutrophils (%) (Auto) 69 % (31-73) Lymphocytes (%) (Auto) 24 % (24-48) Monocytes (%) (Auto) 6 % (0-9) Eosinophils (%) (Auto) 1 % (0-3) Basophils (%) (Auto) 1 % (0-3) Neutrophils # (Auto) 4.7 x10^3uL (1.8-7.7) Lymphocytes # (Auto) 1.6 x10^3/uL (1.0-4.8) Monocytes # (Auto) 0.4 x10^3/uL (0.0-1.1) Eosinophils # (Auto) 0.0 x10^3/uL (0.0-0.7) Basophils # (Auto) 0.1 x10^3/uL (0.0-0.2) Prothrombin Time 13.8 SEC (11.7-14.0) Prothromb Time International Ratio 1.1 (0.8-1.1) Activated Partial Thromboplast Time 30 SEC (24-38) Sodium Level 143 mmol/L (136-145) Potassium Level 3.9 mmol/L (3.5-5.1) Chloride Level 102 mmol/L (98-107) Carbon Dioxide Level 31 mmol/L (21-32) Anion Gap 10 (6-14) Blood Urea Nitrogen 15 mg/dL (8-26) Creatinine 1.2 mg/dL (0.7-1.3) Estimated GFR (Cockcroft-Gault) 60.4 BUN/Creatinine Ratio 13 (6-20) Glucose Level 98 mg/dL (70-99) Calcium Level 9.3 mg/dL (8.5-10.1) Total Bilirubin 0.6 mg/dL (0.2-1.0) Aspartate Amino Transf (AST/SGOT) 14 U/L (15-37) Alanine Aminotransferase (ALT/SGPT) 15 U/L (16-63) Alkaline Phosphatase 122 U/L (46-116) Total Protein 8.0 g/dL (6.4-8.2) Albumin 3.9 g/dL (3.4-5.0) Albumin/Globulin Ratio 1.0 (1.0-1.7) Review of Systems Review of Systems claudication, the rest of ROS 14 point negative Comment Review of Relevant I have reviewed the following items rick (where applicable) has been applied. Labs Laboratory Tests Test 03/27/19 13:50 White Blood Count 6.8 x10^3/uL (4.0-11.0) Red Blood Count 4.93 x10^6/uL (4.30-5.70) Hemoglobin 15.3 g/dL (13.0-17.5) Hematocrit 45.8 % (39.0-53.0) Mean Corpuscular Volume 93 fL (79-100) Mean Corpuscular Hemoglobin 31 pg (25-35) Mean Corpuscular Hemoglobin Concent 34 g/dL (31-37) Red Cell Distribution Width 13.4 % (11.5-14.5) Platelet Count 215 x10^3/uL (140-400) Neutrophils (%) (Auto) 69 % (31-73) Lymphocytes (%) (Auto) 24 % (24-48) Monocytes (%) (Auto) 6 % (0-9) Eosinophils (%) (Auto) 1 % (0-3) Basophils (%) (Auto) 1 % (0-3) Neutrophils # (Auto) 4.7 x10^3uL (1.8-7.7) Lymphocytes # (Auto) 1.6 x10^3/uL (1.0-4.8) Monocytes # (Auto) 0.4 x10^3/uL (0.0-1.1) Eosinophils # (Auto) 0.0 x10^3/uL (0.0-0.7) Basophils # (Auto) 0.1 x10^3/uL (0.0-0.2) Prothrombin Time 13.8 SEC (11.7-14.0) Prothromb Time International Ratio 1.1 (0.8-1.1) Activated Partial Thromboplast Time 30 SEC (24-38) Sodium Level 143 mmol/L (136-145) Potassium Level 3.9 mmol/L (3.5-5.1) Chloride Level 102 mmol/L (98-107) Carbon Dioxide Level 31 mmol/L (21-32) Anion Gap 10 (6-14) Blood Urea Nitrogen 15 mg/dL (8-26) Creatinine 1.2 mg/dL (0.7-1.3) Estimated GFR (Cockcroft-Gault) 60.4 BUN/Creatinine Ratio 13 (6-20) Glucose Level 98 mg/dL (70-99) Calcium Level 9.3 mg/dL (8.5-10.1) Total Bilirubin 0.6 mg/dL (0.2-1.0) Aspartate Amino Transf (AST/SGOT) 14 U/L (15-37) Alanine Aminotransferase (ALT/SGPT) 15 U/L (16-63) Alkaline Phosphatase 122 U/L (46-116) Total Protein 8.0 g/dL (6.4-8.2) Albumin 3.9 g/dL (3.4-5.0) Albumin/Globulin Ratio 1.0 (1.0-1.7) Laboratory Tests Test 03/27/19 13:50 White Blood Count 6.8 x10^3/uL (4.0-11.0) Red Blood Count 4.93 x10^6/uL (4.30-5.70) Hemoglobin 15.3 g/dL (13.0-17.5) Hematocrit 45.8 % (39.0-53.0) Mean Corpuscular Volume 93 fL (79-100) Mean Corpuscular Hemoglobin 31 pg (25-35) Mean Corpuscular Hemoglobin Concent 34 g/dL (31-37) Red Cell Distribution Width 13.4 % (11.5-14.5) Platelet Count 215 x10^3/uL (140-400) Neutrophils (%) (Auto) 69 % (31-73) Lymphocytes (%) (Auto) 24 % (24-48) Monocytes (%) (Auto) 6 % (0-9) Eosinophils (%) (Auto) 1 % (0-3) Basophils (%) (Auto) 1 % (0-3) Neutrophils # (Auto) 4.7 x10^3uL (1.8-7.7) Lymphocytes # (Auto) 1.6 x10^3/uL (1.0-4.8) Monocytes # (Auto) 0.4 x10^3/uL (0.0-1.1) Eosinophils # (Auto) 0.0 x10^3/uL (0.0-0.7) Basophils # (Auto) 0.1 x10^3/uL (0.0-0.2) Prothrombin Time 13.8 SEC (11.7-14.0) Prothromb Time International Ratio 1.1 (0.8-1.1) Activated Partial Thromboplast Time 30 SEC (24-38) Sodium Level 143 mmol/L (136-145) Potassium Level 3.9 mmol/L (3.5-5.1) Chloride Level 102 mmol/L (98-107) Carbon Dioxide Level 31 mmol/L (21-32) Anion Gap 10 (6-14) Blood Urea Nitrogen 15 mg/dL (8-26) Creatinine 1.2 mg/dL (0.7-1.3) Estimated GFR (Cockcroft-Gault) 60.4 BUN/Creatinine Ratio 13 (6-20) Glucose Level 98 mg/dL (70-99) Calcium Level 9.3 mg/dL (8.5-10.1) Total Bilirubin 0.6 mg/dL (0.2-1.0) Aspartate Amino Transf (AST/SGOT) 14 U/L (15-37) Alanine Aminotransferase (ALT/SGPT) 15 U/L (16-63) Alkaline Phosphatase 122 U/L (46-116) Total Protein 8.0 g/dL (6.4-8.2) Albumin 3.9 g/dL (3.4-5.0) Albumin/Globulin Ratio 1.0 (1.0-1.7) Medications Current Medications Albuterol Sulfate (Ventolin Neb Soln) 2.5 mg Q4HRS@0000,0400 [facility] ; Start 03/27/19 at 00:00 Atorvastatin Calcium (Lipitor) 20 mg QHS PO ; Start 03/27/19 at 21:00 Carvedilol (Coreg) 3.125 mg BIDWMEALS PO Last administered on 03/27/19at 18:30; Start 03/27/19 at 17:00 Clopidogrel Bisulfate (Plavix) 75 mg DAILY PO ; Start 03/28/19 at 09:00 Acetaminophen/ Hydrocodone Bitart (Lortab 5/325) 2 tab PRN Q6HRS PRN PO SEVERE PAIN, 2ND CHOICE; Start 03/27/19 at 14:30 Acetaminophen/ Hydrocodone Bitart (Lortab 5/325) 1 tab PRN Q6HRS PRN PO SEVERE PAIN, 1ST CHOICE; Start 03/27/19 at 14:30 Tamsulosin HCl (Flomax) 0.4 mg DAILY PO ; Start 03/28/19 at 09:00 Roflumilast (Daliresp) 500 mcg DAILY PO ; Start 03/28/19 at 09:00 Non-Formulary Medication (Tiotropium [place] (Spiriva)) 2 inh DAILY IH ; Start 03/28/19 at 09:00; Status UNV Nicotine Polacrilex (Nicorette Gum) 1 each PRN Q1HR PRN BC NICOTINE CRAVING; Start 03/27/19 at 14:30 Nicotine (Nicoderm Cq 21mg) 1 patch PRN DAILY PRN TD SMOKING CESSATION; Start 03/27/19 at 14:30 Fentanyl Citrate (Fentanyl 2ml Vial) 50 mcg PRN Q2HR PRN IV PAIN; Start 03/27/19 at 14:30 Acetaminophen (Tylenol) 500 mg PRN Q6HRS PRN PO MILD PAIN / TEMP; Start 03/27/19 at 14:30 Acetaminophen/ Codeine Phosphate (Tylenol #3) 1 tab PRN Q6HRS PRN PO MODERATE PAIN; Start 03/27/19 at 14:30 Ondansetron HCl (Zofran) 4 mg PRN Q6HRS PRN IV NAUSEA/VOMITING; Start 03/27/19 at 14:30 Diphenhydramine HCl (Benadryl) 25 mg PRN QHS PRN PO INSOMNIA; Start 03/27/19 at 14:30 Albuterol/ Ipratropium (Duoneb) 3 ml RTQID NEB Last administered on 03/28/19at 08:18; Start 03/27/19 at 16:00 Iohexol (Omnipaque 350 Mg/ml) 95 ml 1X ONCE IV ; Start 03/28/19 at 07:15; Stop 03/28/19 at 07:17; Status DC Info (CONTRAST GIVEN -- Rx MONITORING) 1 each PRN DAILY PRN MC SEE COMMENTS; Start 03/28/19 at 07:30; Stop 03/30/19 at 07:29 Active Scripts Active Coreg (Carvedilol) 3.125 Mg Tablet 1 Tab PO BID Lipitor (Atorvastatin Calcium) 20 Mg Tablet 1 Tab PO DAILY Reported Furosemide 40 Mg Tablet 40 Mg PO DAILY Albuterol Sulfate Hfa Inhaler (Albuterol Sulfate) 8.5 Gm Hfa.aer.ad 2 Puff INH Q4HRS Clopidogrel (Clopidogrel Bisulfate) 75 Mg Tablet 1 Tab PO DAILY Vitals/I & O Vital Sign - Last 24 Hours 03/27/19 03/27/19 03/27/19 03/27/19 13:13 13:21 13:51 14:51 Temp 97.7 97.7 Pulse 56 52 50 56 Resp 24 B/P (MAP) 150/67 (94) 130/61 (84) 125/62 (83) 127/62 (83) Pulse Ox 97 97 93 95 O2 Delivery Room Air Room Air Nasal Cannula Nasal Cannula O2 Flow Rate 2.0 2.0 03/27/19 03/27/19 03/27/19 03/27/19 15:51 16:45 17:33 18:30 Temp 97.8 97.8 Pulse 50 58 58 Resp 16 B/P (MAP) 124/60 (81) 124/63 (83) 124/63 Pulse Ox 93 93 O2 Delivery Nasal Cannula Nasal Cannula Nasal Cannula O2 Flow Rate 2.0 2.0 2.0 03/27/19 03/27/19 03/27/19 03/27/19 19:10 19:36 19:45 23:51 Temp 97.7 98.5 97.7 98.5 Pulse 63 67 Resp 16 16 B/P (MAP) 112/59 (76) 104/55 (71) Pulse Ox 94 92 96 O2 Delivery Room Air Nasal Cannula Nasal Cannula Nasal Cannula O2 Flow Rate 2.0 2.0 2.0 03/28/19 03/28/19 03/28/19 03/28/19 03:54 07:00 08:00 08:20 Temp 98.5 98.1 98.5 98.1 Pulse 66 66 Resp 16 18 B/P (MAP) 106/56 (73) 104/51 (68) Pulse Ox 93 93 95 O2 Delivery Nasal Cannula Room Air Room Air Room Air O2 Flow Rate 2.0 2.0 Intake and Output 03/27/19 03/27/19 03/28/19 15:00 23:00 07:00 Intake Total 240 ml Balance 240 ml LORNE ARANGO MD March 28, 2019 10:28
[2019-03-28 11:00] VITALS: BP 117/61
--- NOTE | 2019-03-28 11:28 | NUR ---
SW following for discharge planning. Discussed with RN, pt is from home with , gets around fine per RN. RN advised no SW needs at this time. SW will continue to follow.
--- NOTE | 2019-03-28 11:47 | CONS ---
DATE OF CONSULTATION: 03/27/2019 VASCULAR SURGERY CONSULTATION CLINICAL HISTORY: This is a 68-year-old gentleman who has a long history of peripheral arterial disease. Approximately 5 days ago, he began having some pain and discomfort in his left buttock and hip while walking. He says he used to be able to walk half a mile; now, he can only walk 100 feet. He is status post left fltrltc-yf-senhvvljn artery bypass done remotely in the left leg. Ankle brachial indices at rest are normal in the left leg and the arterial duplex scan shows a patent sbohwqz-fx-dxfmnlnkw artery bypass graft with predominant runoff via the posterior tibial and peroneal arteries. His risk factors include continued tobaccoism. PAST SURGICAL HISTORY: The above-mentioned fem-pop bypass and appendectomy. PAST MEDICAL HISTORY: Medical illnesses include hypercholesterolemia. FAMILY HISTORY: Significant for hypertension. SOCIAL HISTORY: The patient smokes less than a pack of cigarettes per day, but still smokes. MEDICATIONS: Current medications are reviewed. They include atorvastatin, carvedilol, clopidogrel, Coreg and Lipitor. ALLERGIES: INCLUDE SULFA, BUPROPION AND MORPHINE. REVIEW OF SYSTEMS: Twelve-point review of systems, other than what was mentioned in the history, is negative. PHYSICAL EXAMINATION: GENERAL: The patient is alert and awake. NECK: Carotids are 2+. CHEST: Clear. ABDOMEN: Soft. EXTREMITIES: With 2+ right femoral pulse, 1+ left femoral pulse. Palpable graft and posterior tibial pulse, left leg. Both feet appear well perfused. DIAGNOSTIC DATA: Arterial duplex and venous duplex scan reviewed; both appear unremarkable at rest. IMPRESSION: 1. Left buttock and hip pain. Non-invasive studies suggest an inflow problem, most likely iliac lesion, which would correspond to the diminished left femoral pulse and his symptoms of buttock claudication. 2. The qrzncna-ci-jiqeexsnr artery bypass in the left leg is patent and the patient does have a palpable posterior tibial pulse at rest. 3. History of tobaccoism. 4. History of coronary artery disease, prior stent placement. PLAN: 1. We will obtain CT angiogram of the abdomen and pelvis to evaluate the inflow vessels. 2. Continue Plavix and aspirin. 3. Tobacco cessation counseling. 4. We will obtain further imaging studies if indicated following the CT angiogram of the abdomen and pelvis. KRISTA TEE MD DR: Alexus JOB#: [id number] / [id number]
[2019-03-28] MEDS ORDERED: FUROSEMIDE 40 MG TABLET. PO SCH (13:30)
[2019-03-28 15:00] VITALS: BP 132/61
--- NOTE | 2019-03-28 15:41 | RAD ---
ANKLE BRACHIAL INDEX Indication: Left leg pain. History of pseudoaneurysm repair. Comparison: None. Procedure: Arterial pressures are measured in the arms and ankles. Findings: . Right ankle: 128 mm Hg. Right arm: 121 mm Hg. Left ankle: 137 mm Hg. Left arm: Not measured due to IV placement. Right leg AMADA: 1.1. Left leg AMADA: 1.2. AMADA interpretation: 0.96 and above Generally normal 0.81-0.95 Mild disease 0.51-0.80 Moderate disease 0.31-0.50 Moderate to severe disease 0.3 or below Severe disease IMPRESSION: Normal ABIs. End of impression: LOWER EXTREMITY DUPLEX ARTERY ULTRASOUND Indication: Left leg pain. History of pseudoaneurysm repair. Comparison: None. Procedure: Real-time grayscale, color flow Doppler, and Doppler spectral waveform analysis of the arterial system of the lower extremity is performed. Findings: Left common femoral artery waveform is monophasic, there is elevated peak systolic velocity 212 cm/s. There is monophasic waveform in the [place] artery. The [place] superficial femoral artery is occluded. There is a femoral popliteal bypass graft that is patent, calcified plaque is noted in the lumen. There are biphasic waveforms in the bypass without elevated peak systolic velocities. The popliteal artery, posterior tibial artery, and peroneal artery waveforms are biphasic. The anterior tibial artery waveform is monophasic. The dorsalis pedis artery is not identified and may be occluded or small caliber. IMPRESSION: 1. Left common femoral artery waveform is monophasic suggesting there is more proximal flow-limiting stenosis. 2. [place] SFA is occluded. There is a patent femoral-popliteal bypass. 3. Dorsalis pedis artery is not identified and may be occluded or small caliber. 4. Monophasic waveform in the anterior tibial artery suggests flow-limiting stenosis near its origin. Electronically signed by: Casper Franklin MD (03/27/2019 2:40 PM) [id number]
--- NOTE | 2019-03-28 16:45 | PDOC ---
Provider Note Provider Note CT angiogram of the abdomen and pelvis with runoff reviewed. He has bilateral fem-pop bypasses and a right common femora to left common femoral bypass, all of which are patent. There appears to moderate stenosis of the right inflow external iliac artery. I recommend angiographic evaluation, percutaneous angioplasty electively. He could be discharged until then. We wlll call the patient to make arrangements. He was encouraged strongly to stop smoking. He will likely require aortobifem reconstruction at some point. KRISTA TEE II, MD March 28, 2019 16:45
--- NOTE | 2019-03-28 17:00 | PDOC3 ---
Discharge Summary Visit Information Date of Admission: March 27, 2019 Date of Discharge: March 28, 2019 Admitting Diagnosis Comment: PAD, bilateral, numerous revascularization, bilateral legs-last one 10 years ago Heavy smoker Claudication History CAD with 1 stent Hx fem fem and fem-pop NO DM Brief Hospital Course Allergies Allergies Coded Allergies Type Severity Reaction Last Updated Verified Sulfa (Sulfonamide Antibiotics) Adverse Reaction Intermediate HALLUCINATIONS 01/13/16 Yes bupropion Adverse Reaction Intermediate HALLUCINATIONS 01/13/16 Yes morphine Adverse Reaction Intermediate HALLUCINATIONS 01/13/16 Yes varenicline Adverse Reaction Intermediate HALLUCINATIONS 01/13/16 Yes Vital Signs Vital Signs Date Time Temp Pulse Resp B/P (MAP) Pulse Ox O2 Delivery O2 Flow Rate FiO2 03/28/19 16:07 Room Air 03/28/19 15:00 97.8 66 18 132/61 (84) 92 97.8 03/28/19 08:00 2.0 Lab Results Laboratory Tests Test 03/27/19 13:50 White Blood Count 6.8 x10^3/uL (4.0-11.0) Red Blood Count 4.93 x10^6/uL (4.30-5.70) Hemoglobin 15.3 g/dL (13.0-17.5) Hematocrit 45.8 % (39.0-53.0) Mean Corpuscular Volume 93 fL (79-100) Mean Corpuscular Hemoglobin 31 pg (25-35) Mean Corpuscular Hemoglobin Concent 34 g/dL (31-37) Red Cell Distribution Width 13.4 % (11.5-14.5) Platelet Count 215 x10^3/uL (140-400) Neutrophils (%) (Auto) 69 % (31-73) Lymphocytes (%) (Auto) 24 % (24-48) Monocytes (%) (Auto) 6 % (0-9) Eosinophils (%) (Auto) 1 % (0-3) Basophils (%) (Auto) 1 % (0-3) Neutrophils # (Auto) 4.7 x10^3uL (1.8-7.7) Lymphocytes # (Auto) 1.6 x10^3/uL (1.0-4.8) Monocytes # (Auto) 0.4 x10^3/uL (0.0-1.1) Eosinophils # (Auto) 0.0 x10^3/uL (0.0-0.7) Basophils # (Auto) 0.1 x10^3/uL (0.0-0.2) Prothrombin Time 13.8 SEC (11.7-14.0) Prothromb Time International Ratio 1.1 (0.8-1.1) Activated Partial Thromboplast Time 30 SEC (24-38) Sodium Level 143 mmol/L (136-145) Potassium Level 3.9 mmol/L (3.5-5.1) Chloride Level 102 mmol/L (98-107) Carbon Dioxide Level 31 mmol/L (21-32) Anion Gap 10 (6-14) Blood Urea Nitrogen 15 mg/dL (8-26) Creatinine 1.2 mg/dL (0.7-1.3) Estimated GFR (Cockcroft-Gault) 60.4 BUN/Creatinine Ratio 13 (6-20) Glucose Level 98 mg/dL (70-99) Calcium Level 9.3 mg/dL (8.5-10.1) Total Bilirubin 0.6 mg/dL (0.2-1.0) Aspartate Amino Transf (AST/SGOT) 14 U/L (15-37) Alanine Aminotransferase (ALT/SGPT) 15 U/L (16-63) Alkaline Phosphatase 122 U/L (46-116) Total Protein 8.0 g/dL (6.4-8.2) Albumin 3.9 g/dL (3.4-5.0) Albumin/Globulin Ratio 1.0 (1.0-1.7) Brief Hospital Course Mr. Strickland is a 68 old heavy smoker, known PAD, multiple revasc proc already on both legs by our [facility] sx team, sent by PCP bec of claudication, Aortic US and AMADA all abnormal, Run off done on that left leg per vas sx. Sunday today, advised by [facility] sx he can go home and ff up with them so they can schedule some revascularization again in the near future. Cont blood thinners for now 2 notes today, so cumultaive time at least 30 mins Discharge Information Condition at Discharge: Improved, Stable Follow Up: Weeks (ff up vas sx as instructed) Disposition/Orders: D/C to Home Scheduled Albuterol Sulfate (Albuterol Sulfate Hfa Inhaler) 8.5 Gm Hfa.aer.ad, 2 PUFF INH Q4HRS for FOR ASTHMA, Ref 0 (Reported) Entered as Reported by: LJ JENSEN on 04/06/15927 Last Action: Reviewed on 03/27/191833 by JORDAN PIERSON Atorvastatin Calcium (Lipitor) 20 Mg Tablet, 1 TAB PO DAILY, #90 Ref 1 Prescribed by: LORNE ARANGO on 01/02/16843 Last Action: Reviewed on 03/27/191833 by JORDAN PIERSON Carvedilol (Coreg ) 3.125 Mg Tablet, 1 TAB PO BID, #180 Ref 1 Prescribed by: LORNE ARANGO on 01/02/16843 Last Action: Reviewed on 03/27/191833 by JORDAN PIERSON Clopidogrel Bisulfate (Clopidogrel) 75 Mg Tablet, 1 TAB PO DAILY, #90 Ref 1 (Reported) Entered as Reported by: LJ JENSEN on 04/06/15901 Last Action: Reviewed on 03/27/191833 by JORDAN PIERSON Furosemide (Furosemide) 40 Mg Tablet, 40 MG PO DAILY for other, (Reported) Entered as Reported by: JORDAN PIERSON on 03/27/191833 Last Taken: Unknown Dose on 03/27/19 Last Action: Continued on 03/28/19 1314 by LORNE RIGGS MD March 28, 2019 17:00
--- NOTE | 2019-03-28 17:53 | NUR ---
Discharge Note: CRICKET PATTERSON [address] Discharge instructions and discharge home medications reviewed with Patient and a copy given. All questions have been answered and understanding verbalized. The following instructions and handouts were given: follow up instructions. Discontinued lines and drains: 20 gauge left AC, tip intact. patient tolerated well. Patient discharged to home with self care via family.
== END 2019-03-28 17:32 | disposition home or self-care (01) | DRG 300 ==
LOC: ER 12:36 → 6 SOUTH 15:15
PROVIDERS: ADMIT Internal Medicine; ATTEND Internal Medicine
DX: I70.212 Atherosclerosis of native arteries of extremities with intermittent claudication, left leg (principal); I74.5 Embolism and thrombosis of iliac artery; I25.10 Atherosclerotic heart disease of native coronary artery without angina pectoris; E78.00 Pure hypercholesterolemia, unspecified; F17.210 Nicotine dependence, cigarettes, uncomplicated; I10 Essential (primary) hypertension; I25.2 Old myocardial infarction; I70.8 Atherosclerosis of other arteries; I71.4 Abdominal aortic aneurysm, without rupture; J44.9 Chronic obstructive pulmonary disease, unspecified; M19.90 Unspecified osteoarthritis, unspecified site; Z79.02 Long term (current) use of antithrombotics/antiplatelets; Z82.49 Family history of ischemic heart disease and other diseases of the circulatory system; Z90.49 Acquired absence of other specified parts of digestive tract; Z95.1 Presence of aortocoronary bypass graft; Z95.2 Presence of prosthetic heart valve; Z95.5 Presence of coronary angioplasty implant and graft; Z87.11 Personal history of peptic ulcer disease; Z88.2 Allergy status to sulfonamides; Z88.8 Allergy status to other drugs, medicaments and biological substances; Z71.6 Tobacco abuse counseling
CPT/HCPCS: 36415; 75635; 80053; 85025; 85610; 85730; 93005; 93922; 93923; 93971; 94640; J7620; Q9967; 99285-25

== ENCOUNTER → 2019-07-03 | Outpatient (CLI) | payer MEDICARE ==
[2019-06-09 15:19] VITALS: BP 128/83
[~2019-07-03] MED LIST changes: +AMLO5TAB10 PO; +FURO40TA4 PO; +GABA300C18 PO; +METO50TA4 PO; +UMEC1DIS IH; +[UNRECOGNIZED DRUG - REMARK] INH
--- NOTE | 2019-07-24 09:20 | CARD ---
MR#: [id number] Date of Study: 07/23/2019 Ordering Physician: NITA HOLLIDAY, Referring Physician: NITA HOLLIDAY, Tech: APPROVED REPORT Procedure Report: Implantable loop recorder. Reason for procedure: Recurrent syncope of unclear etiology Details: After appropriate informed consent, the left chest wall was prepped and draped in usual sterile fashi on. 2% lidocaine was administered in the area of the 4th parasternal space. A 1/2 inch incision was made with a [address] subsequently a [place] loop recorder was placed in a subcutaneous fashion with a preshaped tunneling tool. Incision closed with steristrips. No acute complications noted. Serial Number: [id number] Normal R wave sensing noted. <Conclusion> Successful loop recorder placement for recurrent syncope. Signed by : Nita Holliday, Electronically Approved : 07/24/2019 09:20:02
== END | disposition home or self-care (01) ==
LOC: LINQ 10:51
PROVIDERS: ATTEND Internal Medicine Cardiovascular Disease
DX: Z45.09 Encounter for adjustment and management of other cardiac device (principal); Z88.6 Allergy status to analgesic agent; Z88.2 Allergy status to sulfonamides
CPT/HCPCS: 33285; C1764

== ENCOUNTER → 2019-09-11 | Outpatient (CLI) | payer MEDICARE ==
[2019-06-09 15:19] VITALS: BP 128/83
--- NOTE | 2019-09-11 12:33 | KCIC ---
MRI of the lumbar spine without contrast 09/11/2019 CLINICAL HISTORY: Low back pain which radiates down the left leg. Left leg weakness. TECHNIQUE: Unenhanced T1-weighted and T2-weighted sagittal and axial and inversion recovery sagittal images of the lumbar spine were obtained. FINDINGS: Very mild S-shaped curvature of the thoracolumbar spine is seen. Degenerative signal changes are seen involving all of the disks of the lumbar spine. Degenerative signal changes are seen within the marrow surrounding these discs. Loss of height of the L4-5 and L5-S1 discs is noted. An old compression fracture of the L1 vertebral body is seen. The conus medullaris is normal morphology, position, and signal characteristics. Rounded high signal intensity lesions are seen involving the left kidney on the T2-weighted images. These measure 1 to 2.2 cm in size. They likely represent cysts. At the L1-2 disc space there is a mild generalized disc bulge. Degenerative changes are seen involving the facet joints bilaterally. These findings do not result in significant central spinal canal or neural foraminal stenosis. At the L2-3 and L3-4 disc spaces there are mild generalized disc bulges. Degenerative changes are seen involving the facet joints bilaterally. There is mild ligamentum flavum hypertrophy bilaterally. These findings when combined result in mild central spinal canal stenosis. No neural foraminal stenosis is seen. At the L4-5 disc space there is a mild to moderate generalized disc bulge. This is eccentric to the left. Superimposed on this disc bulge is a left paracentral focal disc herniation which extrudes superiorly. This extruded disc fragment measures 1.3 x 1.1 x 0.7 cm in size. Degenerative changes are seen involving the facet joints bilaterally. There are small facet joint effusions bilaterally. There is prominence of the posterior epidural fat. Mild ligamentum flavum hypertrophy is seen. These findings when combined result in mild to moderate left greater than right central spinal canal stenosis. Severe left neural foraminal stenosis is seen. The extruded disc fragment appears to impinge upon the L4 nerve root within the mid/inferior L4 level within the left lateral aspect of the central spinal canal. The right neural foramen is patent. At the L5-S1 disc space there is a mild to moderate generalized disc bulge. This is eccentric to the left. Degenerative changes are seen involving the facet joints bilaterally. There is mild ligamentum flavum hypertrophy bilaterally. These findings when combined do not result in significant central spinal canal stenosis. Mild left neural foraminal stenosis is seen. The right neural foramen is patent. IMPRESSION: The changes of degenerative disc disease are seen throughout the lumbar spine. These findings result in mild central spinal canal stenosis at L2-3 and L3-4 and mild to moderate left greater than right central spinal canal stenosis at L4-5. Mild left neural foraminal stenosis is seen at L5-S1. Severe left neural foraminal stenosis is seen at L4-5. At the L4-5 disc space a left paracentral focal disc herniation is seen which extrudes superiorly. This appears to impinge upon the left L4 nerve root within the left lateral aspect of the central spinal canal as discussed above. Electronically signed by: Kirill Morse MD (09/11/2019 12:31 PM) [id number]
== END | disposition home or self-care (01) ==
LOC: KCIC MRI 10:40
PROVIDERS: ATTEND Family Medicine
DX: M51.36 Other intervertebral disc degeneration, lumbar region (principal); M51.27 Other intervertebral disc displacement, lumbosacral region; M47.817 Spondylosis without myelopathy or radiculopathy, lumbosacral region; M48.07 Spinal stenosis, lumbosacral region
CPT/HCPCS: 72148

== ENCOUNTER → 2020-05-14 | Outpatient (CLI) | payer MEDICARE ==
[2019-06-09 15:19] VITALS: BP 128/83
--- NOTE | 2020-05-14 09:26 | KCIC ---
EXAM: Left foot, 3 views. HISTORY: Pain. COMPARISON: None. FINDINGS: 3 views of the left foot are obtained. There is no fracture, dislocation or subluxation. There is no lytic or sclerotic osseous lesion. There is no cortical irregularity or periosteal reaction. There is a tiny plantar spur. There are vascular clips within the medial ankle soft tissues. IMPRESSION: No acute osseous finding. Electronically signed by: Nuria Lovell MD (05/14/2020 9:23 AM) [id number]
== END | disposition home or self-care (01) ==
LOC: KCIC 08:40
PROVIDERS: ATTEND Nurse Practitioner Family
DX: M77.32 Calcaneal spur, left foot (principal)
CPT/HCPCS: 73630

== ENCOUNTER → 2020-06-11 | Outpatient (CLI) | payer MEDICARE ==
[2019-06-09 15:19] VITALS: BP 128/83
--- NOTE | 2020-06-11 13:43 | KCIC ---
EXAM: CT Chest without IV contrast INDICATION: Reason: LUNG NODULES, SMOKER X 50 YEARS / Spl. Instructions: PRIOR CTA CHEST 06/07/19 / History: TECHNIQUE: Multi-detector row CT images were acquired from the thoracic inlet through the upper abdomen without the use of IV contrast. Sagittal and coronal images were acquired from the transaxial data. All CT scans performed at this facility utilize dose optimization techniques as appropriate to the exam, including the following: Automated exposure control and adjustment of the mA and/or KV according to patient size (this includes techniques or standardized protocols for targeted exams where dose is indication/reason for exam). COMPARISON: 06/07/[address] with IV contrast FINDINGS: The absence of IV contrast limits evaluation of soft tissue pathology. CARDIOVASCULAR: Scattered calcifications in the systemic arteries. Ascending thoracic aorta measures 3.7 cm. Prosthetic aortic valve dense multivessel coronary calcifications are present. MEDIASTINUM & CECE: Multiple calcified mediastinal and right hilar lymph nodes. LUNGS: Centrilobular emphysema. Stable 4 mm right upper lobe pulmonary nodule (image 42 of series 3) Interval resolution of the previously noted 5 mm nodule in the right middle lobe. Stable 4 mm peripheral left upper lobe nodule (image 45 of series 3). PLEURAL SPACE: No pleural effusions or pneumothorax. OSSEOUS & SOFT TISSUE: Sternotomy redemonstrated. ABDOMEN: The visualized portions of the upper abdomen are unremarkable. IMPRESSION: Stable to decreased pulmonary nodules in the setting of centrilobular emphysema are present. No additional follow-up is required of these nodules specifically. Patient may be considered if appropriate for routine CT lung cancer screening. Electronically signed by: Jim Lopez MD (06/11/2020 1:41 PM) [id number]
== END ==
LOC: KCIC CT 09:28
PROVIDERS: ATTEND Internal Medicine Pulmonary Disease
DX: R91.8 Other nonspecific abnormal finding of lung field (principal); J43.2 Centrilobular emphysema; F17.200 Nicotine dependence, unspecified, uncomplicated
CPT/HCPCS: 71250

== ENCOUNTER → 2021-05-06 | Outpatient (CLI) | payer MEDICARE ==
[2019-06-09 15:19] VITALS: BP 128/83
[~2021-05-06] MED LIST changes: +AMLO-186 PO; -AMLO5TAB10 PO
--- NOTE | 2021-05-06 16:47 | CARD ---
MR#: [id number] Date of Study: 05/06/2021 Ordering Physician: NITA HOLLIDAY, Referring Physician: NITA HOLLIDAY, Tech: Satinder Escobedo [facility] APPROVED REPORT EXAM: Two-dimensional and M-mode echocardiogram with Doppler and color Doppler. Other Information Quality : AverageHR: 61bpm Rhythm : NSR INDICATION Aortic Valve Disease Surgery/Intervention Status/Post Aortic Valve Replacement: Bioprosthetic RISK FACTORS Smoking 2D DIMENSIONS Left Atrium(2D)3.9 (1.6-4.0cm)IVSd1.2 (0.7-1.1cm) Aortic Root(2D)3.4 (2.0-3.7cm)LVDd4.5 (3.9-5.9cm) LVOT Diameter2.1 (1.8-2.4cm)PWd1.2 (0.7-1.1cm) LVDs3.0 (2.5-4.0cm)FS (%) 32.7 % SV55.8 mlLVEF(%)61.3 (>50%) Aortic Valve AoV Peak Yogi.168.1cm/sAoV VTI30.5cm AO Peak GR.11.3mmHgLVOT Peak Yogi.91.9cm/s AO Mean GR.5mmHgAVA (VMAX)1.88cm2 Mitral Valve MV E Vclqmchr35.0cm/sMV E Peak Gr.3mmHg MV DECEL [id number] A Cnbsdlgh99.2cm/s MV E Mean Gr.1mmHgE/A Ratio1.0 Pulmonary Valve PV Peak Mkskyqfw49.0cm/s Tricuspid Valve TR P. Valtgivj659kq/sTR Peak Gr.23mmHg Pulmonary Vein S1 Gbdbmqan75.1cm/sD2 Tixrovhq08.3cm/s LEFT VENTRICLE The left ventricle is normal size. There is mild concentric left ventricular hypertrophy. The left ve ntricular systolic function is normal. The ejection fraction is 55%. There is normal LV segmental wal l motion. Transmitral Doppler flow pattern is Grade II-pseudonormal filling dynamics. No left ventric le thrombus noted on this study. There is no ventricular septal defect visualized. There is no left v entricular aneurysm. There is no mass noted in the left ventricle. RIGHT VENTRICLE The right ventricle is normal size. There is normal right ventricular wall thickness. The right ventr icular systolic function is normal. ATRIA The left atrium is mildly dilated. The right atrium size is normal. The interatrial septum is intact with no evidence for an atrial septal defect or patent foramen ovale as noted on 2-D or Doppler imagi ng. AORTIC VALVE Doppler and Color Flow revealed no significant aortic regurgitation. There is no significant aortic v alvular stenosis. The prosthetic aortic valve appears normal. MITRAL VALVE The mitral valve is normal in structure and function. There is no evidence of mitral valve prolapse. There is no mitral valve stenosis. Doppler and Color-flow revealed trace mitral regurgitation. TRICUSPID VALVE The tricuspid valve is normal in structure and function. Doppler and Color Flow revealed trace tricus pid regurgitation. There is no tricuspid valve prolapse or vegetation. There is no tricuspid valve st enosis. PULMONIC VALVE Doppler and Color Flow revealed no pulmonic valvular regurgitation. There is no pulmonic valvular donaldo nosis. GREAT VESSELS The aortic root is normal in size. The ascending aorta is normal in size. The pulmonary artery is nor mal. The IVC is normal in size and collapses >50% with inspiration. PERICARDIAL EFFUSION There is no pleural effusion. There is no evidence of significant pericardial effusion. Critical Notification Critical Value: No <Conclusion> The left ventricular systolic function is normal. The ejection fraction is 55%. There is normal LV segmental wall motion. Transmitral Doppler flow pattern is Grade II-pseudonormal filling dynamics. Bioprosthetic aortic valve appears well seated and functioning well. Trace mitral regurgitation. Trace tricuspid regurgitation. There is no evidence of significant pericardial effusion. Signed by : Girish Berry, Electronically Approved : 05/06/2021 16:46:51
== END ==
LOC: ECHO 14:57
PROVIDERS: ATTEND Internal Medicine Cardiovascular Disease
DX: I51.7 Cardiomegaly (principal)
CPT/HCPCS: 93306

== ENCOUNTER → 2021-07-13 | Outpatient (CLI) | payer MEDICARE ==
[2019-06-09 15:19] VITALS: BP 128/83
[~2021-07-13] MED LIST changes: -LISI2.5T PO; +LISI2.5T12 PO
--- NOTE | 2021-07-13 16:12 | KCIC ---
CT LOW DOSE LUNG SCREEN HISTORY: Lung cancer screening COMPARISON: CT chest 06/11/2020 TECHNIQUE: Low-dose noncontrast CT scan of the chest. FINDINGS: Aorta and great vessels: Aortic valve replacement. No aneurysm of the aortic arch or thoracic aorta i s seen. Moderate atherosclerotic calcification. Thyroid: No significant abnormalities. Mediastinum and devon: Calcified subcarinal lymph nodes. Esophagus: The visualized esophagus is normal. Heart: The heart is normal in size. There is no pericardial effusion. Heavy coronary artery calcifica tion. Airways, Lungs and Pleura: Moderate emphysematous change. Diffuse bronchial wall thickening. A few sc attered sub-4 mm pulmonary micronodules. Upper abdomen: Granulomatous calcifications in the spleen. Osseous structures and soft tissues: Stable wedge compression at L1. Subcutaneous cardiac device at t he left chest wall. IMPRESSION: 1. Moderate emphysematous change and bronchial wall thickening compatible with COPD. Scattered pulmo nary micronodules. 2. Heavy coronary artery calcification. Status post aortic valve replacement. LUNG RADS: Category 2: Benign appearance or behavior. Follow up: Continue annual screening with LDCT in 12 months. Exposure: One or more of the following individualized dose reduction techniques were utilized for thi s examination: 1. Automated exposure control 2. Adjustment of the mA and/or kV according to patient size 3. Use of iterative reconstruction technique. Electronically signed by: Flako Rodriguez MD (07/13/2021 4:09 PM) [facility]
== END ==
LOC: KCIC CT 12:46
PROVIDERS: ATTEND Internal Medicine Pulmonary Disease
DX: J43.9 Emphysema, unspecified (principal); R91.8 Other nonspecific abnormal finding of lung field; I25.10 Atherosclerotic heart disease of native coronary artery without angina pectoris; I70.0 Atherosclerosis of aorta; L92.8 Other granulomatous disorders of the skin and subcutaneous tissue; F17.210 Nicotine dependence, cigarettes, uncomplicated
CPT/HCPCS: 71271

== ENCOUNTER 2021-11-01 12:07 | Emergency (ER) | payer MEDICARE ==
[~2021-11-01] VITALS: Ht 177.8 cm; Wt 65.9 kg
[2021-11-01] MEDS ORDERED: IV NORMAL SALINE 1000ML BAG 1,000 ML IV ONE (12:45)
[2021-11-01] MEDS ORDERED: ONDANSETRON PF 4 MG/2 ML VIAL. IVP ONE (12:45)
[2021-11-01] MEDS ORDERED: FAMOTIDINE 20 MG/2 ML VIAL IVP ONE (12:45)
[2021-11-01 12:54] LABS: BASO # 0.1 x10^3/uL (0.0-0.2); BASO % 1 % (0-3); EOS % 0 % (0-3); HEMATOCRIT 37.8 % (39.0-53.0); HEMOGLOBIN 12.4 g/dL (13.0-17.5); LYMPH # 3.5 x10^3/uL (1.0-4.8); LYMPH % 28 % (24-48); MEAN CORPUSCULAR HEMOGLOBIN 31 pg (25-35); MEAN CORPUSCULAR HGB CONC 33 g/dL (31-37); MEAN CORPUSCULAR VOLUME 95 fL (79-100); MONO # 0.7 x10^3/uL (0.0-1.1); MONO % 6 % (0-9); NEUT # 8.5 x10^3/uL (1.8-7.7); NEUT % 66 % (31-73); PLATELET COUNT 171 x10^3/uL (140-400); RED BLOOD COUNT 3.98 x10^6/uL (4.30-5.70); RED CELL DISTRIBUTION WIDTH 13.9 % (11.5-14.5); WHITE BLOOD COUNT 12.8 x10^3/uL (4.0-11.0)
[2021-11-01 13:07] LABS: CALCIUM 8.3 mg/dL (8.5-10.1); CREATININE 1.4 mg/dL (0.7-1.3); GFR 50.2; POTASSIUM 3.9 mmol/L (3.5-5.1)
[2021-11-01 13:14] LABS: DIRECT BILIRUBIN 0.2 mg/dL (0.0-0.2); MAGNESIUM 2.4 mg/dL (1.8-2.4); TOTAL BILIRUBIN 0.5 mg/dL (0.2-1.0); TOTAL PROTEIN 7.1 g/dL (6.4-8.2)
[2021-11-01] MEDS ORDERED: ONDA4TAB12 PO (15:23)
--- NOTE | 2021-11-01 15:25 | PHYS DOC ---
Past Medical History Past Medical History: CAD, COPD, High Cholesterol, Hypertension, Other Additional Past Medical Histor: arterial sclerosis, NSTEMI Past Surgical History: Appendectomy, Other Additional Past Surgical Histo: multiple bilat leg, fem pop, Anerysm reduction Smoking Status: Current Every Day Smoker Alcohol Use: None Drug Use: None General Adult EDM: Chief Complaint: NAUSEA/VOMITING/DIARRHEA HPI: HPI: 70-year-old male past medical history significant for copd, CAD on Plavix, hypertension hyperlipidemia, presents the ED with complaints of "could not stop vomiting," nausea, nonbloody nonbilious vomiting and upper abdominal cramping discomfort that started just prior to arrival. Patient's daughter is present in the emergency department, (patient consents to his/her/their knowledge and involvement in pts' medical care). Reports has been vaccinated for influenza and Covid. No known sick contacts. Lives with who is asymptomatic. Reports he does not have any current abdominal pain in emergency department and feels nauseous. Triage note reporting diarrhea. Patient denies any diarrhea on my exam. Review of Systems: Review of Systems: Constitutional: Denies fever or chills. [] Eyes: Denies change in visual acuity. [] HENT: Denies nasal congestion or sore throat. [] Respiratory: Denies cough or shortness of breath. [] Cardiovascular: Denies chest pain or edema. [] GI: Denies bloody stools or diarrhea. [] : Denies dysuria or hematuria Musculoskeletal: Denies back pain or joint pain. [] Integument: Denies rash or diaphoresis Neurologic: Denies headache, focal weakness or sensory changes. [] Endocrine: Denies polyuria or polydipsia. [] Lymphatic: Denies swollen glands. [] Psychiatric: Denies depression or anxiety. [] Heart Score: C/O Chest Pain: No Risk Factors: Risk Factors: DM, Current or recent (<one month) smoker, HTN, HLP, family history of CAD, obesity. Risk Scores: Score 0 - 3: 2.5% MACE over next 6 weeks - Discharge Home Score 4 - 6: 20.3% MACE over next 6 weeks - Admit for Clinical Observation Score 7 - 10: 72.7% MACE over next 6 weeks - Early Invasive Strategies Current Medications: Current Medications Medications (Trade) Dose Ordered Sig/Kacie Start Time Stop Time Status Last Admin Dose Admin Famotidine (Pepcid Vial) 20 mg 1X ONCE 11/01/21 12:45 11/01/21 13:07 DC 11/01/21 13:17 20 MG Ondansetron HCl (Zofran) 4 mg 1X ONCE 11/01/21 12:45 11/01/21 13:07 DC 11/01/21 13:17 4 MG Sodium Chloride 1,000 ml @ 1,000 mls/hr 1X ONCE 11/01/21 12:45 11/01/21 13:44 DC 11/01/21 13:16 1,000 MLS/HR Allergies: Allergies: Allergies Coded Allergies Type Severity Reaction Last Updated Verified Sulfa (Sulfonamide Antibiotics) Adverse Reaction Intermediate HALLUCINATIONS 01/13/16 Yes bupropion Adverse Reaction Intermediate HALLUCINATIONS 01/13/16 Yes morphine Adverse Reaction Intermediate HALLUCINATIONS 01/13/16 Yes varenicline Adverse Reaction Intermediate HALLUCINATIONS 01/13/16 Yes Physical Exam: PE: Constitutional: no acute distress, non-toxic appearance. HENT: Normocephalic, atraumatic, dry mucous membranes Eyes: EOMI, conjunctiva normal, no discharge. Neck: Normal range of motion, supple, Cardiovascular: S1/2 present, regular rhythm Lungs & Thorax: Speaking in full sentences, bilateral equal chest rise, no tachypnea or increased work of breathing Abdomen: soft, no tenderness, no rigidity or guarding, large midline abdominal wall scar-h/o appendectomy Skin: Warm, dry, no erythema, no rash. [] Back: No tenderness, no CVA tenderness. [] Extremities: No tenderness, no cyanosis, no lower extremity edema Neurologic: Alert and oriented X 3, normal motor function, normal sensory f unction, no focal deficits noted. [] Psychologic: Affect normal, judgement normal, mood normal. [] Current Patient Data: Labs: Laboratory Tests Test 11/01/21 11:25 White Blood Count 12.8 x10^3/uL (4.0-11.0) H Red Blood Count 3.98 x10^6/uL (4.30-5.70) L Hemoglobin 12.4 g/dL (13.0-17.5) L Hematocrit 37.8 % (39.0-53.0) L Mean Corpuscular Volume 95 fL (79-100) Mean Corpuscular Hemoglobin 31 pg (25-35) Mean Corpuscular Hemoglobin Concent 33 g/dL (31-37) Red Cell Distribution Width 13.9 % (11.5-14.5) Platelet Count 171 x10^3/uL (140-400) Neutrophils (%) (Auto) 66 % (31-73) Lymphocytes (%) (Auto) 28 % (24-48) Monocytes (%) (Auto) 6 % (0-9) Eosinophils (%) (Auto) 0 % (0-3) Basophils (%) (Auto) 1 % (0-3) Neutrophils # (Auto) 8.5 x10^3/uL (1.8-7.7) H Lymphocytes # (Auto) 3.5 x10^3/uL (1.0-4.8) Monocytes # (Auto) 0.7 x10^3/uL (0.0-1.1) Eosinophils # (Auto) 0.0 x10^3/uL (0.0-0.7) Basophils # (Auto) 0.1 x10^3/uL (0.0-0.2) Sodium Level 142 mmol/L (136-145) Potassium Level 3.9 mmol/L (3.5-5.1) Chloride Level 104 mmol/L (98-107) Carbon Dioxide Level 29 mmol/L (21-32) Anion Gap 9 (6-14) Blood Urea Nitrogen 26 mg/dL (8-26) Creatinine 1.4 mg/dL (0.7-1.3) H Estimated GFR (Cockcroft-Gault) 50.2 Glucose Level 142 mg/dL (70-99) H Calcium Level 8.3 mg/dL (8.5-10.1) L Magnesium Level 2.4 mg/dL (1.8-2.4) Total Bilirubin 0.5 mg/dL (0.2-1.0) Direct Bilirubin 0.2 mg/dL (0.0-0.2) Aspartate Amino Transferase (AST) 26 U/L (15-37) Alanine Aminotransferase (ALT) 39 U/L (16-63) Alkaline Phosphatase 189 U/L (46-116) H Total Protein 7.1 g/dL (6.4-8.2) Albumin 3.0 g/dL (3.4-5.0) L Laboratory Tests 11/01/21 11:25 Laboratory Tests 11/01/21 11:25 Vital Signs: Vital Signs Date Time Temp Pulse Resp B/P (MAP) Pulse Ox O2 Delivery O2 Flow Rate FiO2 11/01/21 12:10 98.1 54 18 115/57 (76) 90 Room Air 98.1 EKG: EKG: [] Radiology/Procedures: Radiology/Procedures: [] Course & Med Decision Making: Course & Med Decision Making Pertinent Labs and Imaging studies reviewed. (See chart for details) Concern for sudden onset nausea, vomiting and abdominal pain-reports abdominal pain similar present emergency department. Denies any chest or back discomfort, "this is not like my open heart surgery symptoms, I think I ate something bad." Labs no electrolyte abnormality. Does show mild renal insufficiency. Patient tolerated oral intake prior to ED discharge. Understands liquid diet with slow transition to solids via brat diet. Will prescribe ODT Zofran. Will discharge home with strict ED return precautions were given for severe pain, chest pain, intractable nausea or vomiting or dehydration. Encouraged urgent outpatient follow-up with PMD for reevaluation. Life-threatening processes were considered but are low suspicion at this time, given history, physical exam and ED workup. Pt was educated on all prescription medications and adverse effects. All patie nt's questions were answered and pt was stable at time of discharge. Life/limb-threatening differential includes but is not limited to, acute coronary syndrome/myocardial infarction, Boerhaave's, DKA, gastrointestinal bleeding, intracranial hemorrhage, ischemic bowel, meningitis, sepsis, surgical abdomen (AAA), toxidrome (drug over/overdose/carbon monoxide, etc), ovarian/testicular torsion, trauma, or infection/sepsis. I have spoken with the patient and/or caregivers. I explained the patient's condition, diagnoses and treatment plan based on the information available to me at this time. I have answered the patient and/or caregiver's questions and addressed any concerns. The patient and/or caregivers have a good understanding of patient's diagnosis, condition and treatment plan as can be expected at this point. Vital signs have been stable. Patient's condition is stable and appropriate for discharge from the emergency department. Patient will pursue further outpatient evaluation with primary care physician or other designated or consulting physician as outlined in the discharge instructions. The patient and/or caregivers are agreeable to this plan of care and follow-up instructions have been explained in detail. The patient and/or caregivers have received these instructions in written form and have expressed an understanding of the discharge instructions. The patient and/or caregivers are aware that any significant change of condition or worsening of symptoms should prompt immediate return to this or the closest emergency department or call to 911. Karlos Disclaimer: Dragolaf Disclaimer: This electronic medical record was generated, in whole or in part, using a voice recognition dictation system. Departure Departure Impression: Primary Impression: Nausea & vomiting Additional Impression: AKIRA (acute kidney injury) Disposition: HOME / SELF CARE / HOMELESS Condition: STABLE Referrals: JOSIAS ST MD (PCP) Follow-up with your primary care physician in 24 to 48 hours OR FOLLOW UP WITH FAMILY MEDICINE: [address] [place] [address] [address] [place] [address] Patient Instructions: Nausea and Vomiting Additional Instructions: FOLLOW UP WITH NEPHROLOGY: FOR DEFINITIVE MANAGEMENT of acute kidney [place] [address] [place] [address] EMERGENCY DEPARTMENT GENERAL DISCHARGE INSTRUCTIONS Thank you for coming to [facility] Emergency Department (ED) today and trusting us with you care. We trust that you had a positive experience in our Emergency Department. If you wish to speak to the department management, you may call the Director at [phone]. YOUR FOLLOW UP INSTRUCTIONS ARE FOLLOWS: 1. Do you have a private Doctor? If you do not have a private doctor, please ask for a resource list of physicians or clinics that may be able to assist you with follow up care. 2. The Emergency Physicain has interpreted your x-rays. The X-Ray specialist will also review them. If there is a change in the findings, you will be notified in 48 hours when at all possible. 3. A lab test or culture has been done, your results will be reviewed and you will be notified if you need a change in treatment. ADDITIONAL INSTRUCTIONS AND INFORMATION: 1. Your care today has been supervised by a physician who is specially trained in emergency care. Many problems require more than one evaluation for a complete diagnosis and treatment. We recommend that you schedule your follow up appointment as recommended to ensure complete treatment of you illness or injury. If you are unable to obtain follow up care and continue to have a problem, or if your condition worsens, we recommend that you return to the ED. 2. We are not able to safely determine your condition over the phone nor are we able to give sound medical advice over the phone. For these safety reasons, if you call for medical advice we will ask you to come to the ED for further evaluation. 3. If you have any questions regarding these discharge instructions please call the ED at [phone]. SAFETY INFORMATION: In the interest of safety, wellness, and injury prevention; we encourage you to wear your sealbelt, if you smoke; quite smoking, and we encourage family to use a protective helmet for bicycling and other sporting events that present an increased risk for head injury. IF YOUR SYMPTOMS WORSEN OR NEW SYMPTOMS DEVELOP, OR YOU HAVE CONCERNS ABOUT YOUR CONDITION; OR IF YOUR CONDITION WORSENS WHILE YOU ARE WAITING FOR YOUR FOLLOW UP APPOINTMENT; EITHER CONTACT YOUR PRIMARY CARE DOCTOR, THE PHYSICIAN WHOSE NAME AND NUMBER YOU WERE GIVEN, OR RETURN TO THE ED IMMEDIATELY. Scripts Ondansetron (ONDANSETRON ODT) 4 Mg Tab.rapdis 1 TAB PO PRN Q6-8HRS, #20 TAB Prov: ERICA BAUM DO 11/01/21 ERICA BAUM DO Nov 01, 2021 15:25
[2021-11-01 15:42] VITALS: BP 93/47
--- NOTE | 2021-11-02 20:00 | EKG ---
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
--- NOTE | 2021-11-09 10:05 | EKG ---
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
== END 2021-11-01 15:55 | disposition home or self-care (01) ==
LOC: ER 12:07
DX: N17.9 Acute kidney failure, unspecified (principal); R11.2 Nausea with vomiting, unspecified; J44.9 Chronic obstructive pulmonary disease, unspecified; E78.00 Pure hypercholesterolemia, unspecified; I10 Essential (primary) hypertension; I25.10 Atherosclerotic heart disease of native coronary artery without angina pectoris; F17.200 Nicotine dependence, unspecified, uncomplicated; Z90.89 Acquired absence of other organs; E78.5 Hyperlipidemia, unspecified; Z88.2 Allergy status to sulfonamides; Z88.5 Allergy status to narcotic agent; Z88.8 Allergy status to other drugs, medicaments and biological substances
CPT/HCPCS: 36415; 80048; 80076; 83735; 85025; 93005; 96361; 96374; 96375; 99284; J2405; J3490; J7030